=== PATIENT | female | born 1970 | race Caucasian/White ===

== ENCOUNTER 2024-03-02 06:43 | Outpatient (OUT) | payer OTHER, SELFPAY ==
--- NOTE | 2024-03-02 | US_ITS ---
The [address] [address] Patient Name: NARINDER JO MRN: [id number] date: 1970 Sex: F Assigned Patient Location: Current Patient Location: Accession/Order Number: [id number] Exam Date: 03/02/2024 07:02 Report Date: 03/03/2024 04:25 At the request of: AVTAR GAN Procedure: US pelvis w/ transvaginal EXAMINATION: US pelvis w/ transvaginal HISTORY: Left lower quadrant abdomen pain R10.32 COMPARISON: No relevant comparison available. TECHNIQUE: Transabdominal and/or transvaginal sonographic examination was performed as indicated by examination type. FINDINGS: UTERUS: Hysterectomy. RIGHT OVARY: Oophorectomy. LEFT OVARY: Normal size and appearance. Duplex Doppler demonstrates normal waveform and flow; resistive index 0.5. Ovary size: 2.3 x 1.4 x 1.6 cm CUL-DE-SAC: Unremarkable. No significant free fluid. BLADDER: Unremarkable. OTHER: None. US/US pelvis w/ transvaginal IMPRESSION: 1. Prior hysterectomy and right oophorectomy. 2. Unremarkable left ovary. No suspicious pelvic findings. Electronically authenticated by: DB ROD Date: 03/03/2024 04:25
== END 2024-03-02 06:44 | disposition home or self-care (01) ==
LOC: US 06:46
PROVIDERS: PCP Internal Medicine; Visit Provider Nurse Practitioner Family
DX: R10.32 Left lower quadrant pain (principal); Z87.42 Personal history of other diseases of the female genital tract
CPT/HCPCS: 76830; 76856

== ENCOUNTER 2024-03-04 08:09 | Emergency (ER) | payer OTHER, SELFPAY ==
[2024-03-04 08:15] VITALS: BP 150/82; PULSE 94; TEMP 36.7; O2SAT 100; BMI 29.6
--- OUTSIDE RECORDS SUMMARY | 2024-03-04 08:15 | XMS_ITS | CCD ---
Author Organization [facility] Care Team Providers Care Podiatrist Orthopedic Name Role Phone Montana Albrecht Unavailable Unavailable [...] Jenna Arcos Primary Care Mely Albrecht, Dr. Boyel Attending Unavailable Junitoertgiselle, Dr. Boyle Attending Unavailable Laneestdina, Dr. Jenna Arcos Primary Care Mely Albrecht, Dr. Boyle Referring Unavailable Sobia Law Unavailable [phone] Jenna Rodriguez MD Primary Care Provider MONTANA ALBRECHT Attending Unavailable JENNA RODRIGUEZ Primary Care UnavailMONTANA Severino Attending Unavailable JENNA RODRIGUEZ Primary Care Unavailkaylie e JENNIFER, JENNA ARCOS Primary Care UnavailMONTANA Severino Referring Unavailable Allergies Allergy Classification Reported Allergen(s) Allergy Type Date of Onset Reaction(s) Facility Amoxicillin / Clavulanate (1 source) Amoxicillin / Clavulanate Drug Allergy 3 [facility] Shellfish (1 source) Shellfish Food Allergy 4 [facility] shrimp allergenic extract (1 source) shrimp allergenic extract Drug Allergy 3 [facility] Work Phone: (10 sources) shrimp, unspecified; Translations: [SHRIMP] Allergy to substance (finding) 3 Anaphylaxis [facility] 3 Repository (7 sources) Other Allergy to substance (finding) [facility] Work Phone: (6 sources) Amoxicillin / Clavulanate; Translations: [Augmentin SUSR] Drug Allergy 3 Unknown [facility] (1 source) Amoxicillin / Clavulanate Drug Allergy [facility] Repository (1 source) Shrimp product Drug allergy (disorder) [facility] Repository (1 source) Shrimp product Propensity to adverse reactions Unknown [facility] Other (3 sources) Shellfish; Translations: [SHELLFISH DERIVED] Propensity to adverse reactions 4 [facility] (1 source) shrimp allergenic extract Drug Allergy 3 [facility] Work Phone: (2 sources) AMOXICILLIN-POT CLAVULANATE; Translations: [AMOXICILLIN-PO T CLAVULANATE] Propensity to adverse reactions to drug (disorder) 3 [facility] 3 Repository (1 source) Amoxicillin Drug Allergy [address] [facility] (1 source) Clavulanate Drug Allergy [address] [facility] Medications Current Medications Medication Drug Class(es) [...] COMPARISON: MRI 02/25/2021 and 02/24/2022 ACCESSION NUMBER(S): [id number] ORDERING CLINICIAN: MONTANA ALBRECHT TECHNIQUE: Axial and [...] as stated. This study was interpreted at [place], [place]. MACRO: None Signed by: Marbin Rao 03/02/2023 2:51 PM Dictation workstation: [id number] Normal [facility] Comment on above: Order Comment: Jeremias Juarez [...] 25 MG TABS Vitals Vital Signs Recorded: [id number] 09:24AM Height5 ft 7 in Ckvjjy821 lb BMI Nciuuwulgz14.7 kg/m2 BSA Calculated2 Tobacco Useb) No Falls [...] Aug 25 2022 9:37AM EST (Author) Normal [employer] Tobacco Screening.on 023 Fall risk assessment a) No falls within the last year [facility] Work Phone: Tobacco use status [facility] b) No [facility] Work Phone: Established Visit (Otolaryng ology)on 02-24-2022 [...] Recorded: 24Feb2022 11:13AM Height5 ft 7 in Ijsavl693 lb BMI Oefxssdbwn32.45 kg/m2 BSA Calculated1.97 Tobacco Useb) No PHQ-2 [...] 022 Adult depression screening assessment No [facility] Work Phone: Fall risk assessment a) No falls within the last year [facility] Work Phone: Tobacco use status [facility] b) No [facility] Work Phone: BUNon 02-18-2022 Urea nitrogen [Mass/Vol] 11.0 mg/dL Normal 7.0-18.0 [facility] Comment on above: Performed By: #### B , CREA #### [facility] [address] [place] [address] Dr. Kayli Banda CREATININEon 02-18-2022 Creatinine [Mass/Vol] 0.82 mg/dL Normal 0.55-1.02 [facility] Comment on above: Performed By: #### B UN, CREA #### [facility] [address] [place] [address] Dr. Kayli Banda EGFR-AF MALIAN >60 Normal >=60 [facility] Comment on above: Performed By: #### B UN, CREA #### [facility] [address] [place] [address] Dr. Kayli Banda EGFR-NON AF MALIAN >60 Normal >=60 [facility] Comment on above: Performed By: #### B , CREA #### [facility] [address] [place] [address] Dr. Kayli Banda Established Visit (Otolaryng ology)on [...] February. Reflux laryngitis which she manages with vpaq-trt-qytqljz omeprazole. I will see her in 6 months. 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 Surgical removal had been discussed with the patient. She understands that this will have to be the solution. We will continue to follow this clinically. A repeat MRI will be obtained in February. Reflux laryngitis which she manages with kzkt-inw-pxxjxpv omeprazole. I will see her in 6 [...] by mouth daily Vitals Vital Signs Recorded: [id number] 09:22AM Wxivpocspcg21.3 F Height5 ft 7 in Vrejdq168 lb BMI Rqkpvbiajb09.17 kg/m2 BSA Calculated2.02 Tobacco Useb) No Fall [...] Sep 09 2021 9:30AM EST (Author) Normal [employer] Tobacco Screening.on Fall risk assessment c) Not medically indicated [facility] ol[facility]ol [facility] Work Phone: Tobacco use status [facility] b) No [facility] Work Phone: Tobacco Screening.on Fall risk assessment c) Not medically indicated [facility] Work Phone: Tobacco use status CP b) No [facility] Work Phone: MRI Neck w/wo Contraston MR Neck WO and W contrast IV Interpreted by: PARISH SOSA01/30/20 13:14MRN: [id number] Name: RADHA JO STUDY:MRI NECK WO/W; 01/30/2020 [...] by: PARISH SOSA 01/30/20 13:14 [facility] Phone: Vital Signs Date Time Vital Sign Value Performing Clinician Facility 02-28-2024 10:31-0500 Body height 172.72 cm [facility] 02-28-2024 10:31-0500 Body mass index (BMI) [Ratio] 30.5 kg/m2 [facility] 02-28-2024 10:31-0500 Body temperature 98.7 [degF] [facility] 02-28-2024 10:31-0500 Body weight 91.17 kg [facility] 02-28-2024 10:31-0500 Diastolic blood pressure 76 mm[Hg] [facility] 02-28-2024 10:31-0500 Heart rate 108 /min [facility] 02-28-2024 10:31-0500 SaO2% (BldA) [Mass fraction] 95 % [facility] 02-28-2024 10:31-0500 Systolic blood pressure 124 mm[Hg] [facility] 09-14-2023 08:13-0400 Body height 170.2 cm Montana Albrecht MD Work Phone: [facility] 09-14-2023 08:13-0400 Body mass index (BMI) [Ratio] 30.54 kg/m2 Montana Albrecht MD Work Phone: [facility] 09-14-2023 08:13-0400 Body weight 88.45 kg Montana Albrecht MD Work Phone: [facility] 03-02-2023 10:29-0500 Body height 170.2 cm Montana Albrecht MD Work Phone: [facility] 03-02-2023 10:29-0500 Body mass index (BMI) [Ratio] 30.7 kg/m2 Montana Albrecht MD Work Phone: [facility] 03-02-2023 10:29-0500 Body weight 88.91 kg Montana Albrecht MD Work Phone: [facility] 02-01-2023 15:30-0400 Body height 170.18 cm Sobia Law Other [facility] Other 02-01-2023 15:30-0400 Body mass index (BMI) [Ratio] 31.32 kg/m2 Sobia Law Other [facility] Other 02-01-2023 15:30-0400 Body weight 90.72 kg Sobia Law Other [facility] Other 02-01-2023 15:30-0400 Diastolic blood pressure 82 mm[Hg] Sobia Smithcheryl Other [facility] Other 02-01-2023 15:30-0400 SaO2% (BldA) [Mass fraction] 98 % Sobia Zavalachago Other [facility] Other 02-01-2023 15:30-0400 Systolic blood pressure 122 mm[Hg] Sobia Smithcheryl Other [facility] Other 08-25-2022 09:24-0400 Body height 170.18 cm Jenna Rodriguez Work Phone: JB-Xpiajkthjmvxfk-Pfr [facility] Work Phone: 08-25-2022 09:24-0400 Body mass index (BMI) [Ratio] 30.7 kg/m2 Jenna Rodriguez Work Phone: VW-Zisbldkcwayxjw-Vkl [facility] Work Phone: 08-25-2022 09:24-0400 Body surface area Derived from formula 2 m2 Jenna Rodriguez Work Phone: DW-Dxobesmdjqtiyc-Rqs [place] Work Phone: 08-25-2022 09:24-0400 Body weight 88.91 kg Jenna Rodriguez Work Phone: CG-Sdfdotmxliwmdm-Fdd [place] Work Phone: 02-24-2022 11:13-0500 Body height 170.18 cm Jenna Rodriguez Work Phone: QD-Ahewjttncbdmvk-Nyy [facility] Work Phone: 02-24-2022 11:13-0500 Body mass index (BMI) [Ratio] 29.45 kg/m2 Jenna Rodriguez Work Phone: DN-Erzzhchdrhwwlw-Jdd [place] Work Phone: 02-24-2022 11:13-0500 Body surface area Derived from formula 1.97 m2 Jenna Rodriguez Work Phone: UW-Xixamatpmbxzrm-Pxm [place] Work Phone: 02-24-2022 11:13-0500 Body weight 85.28 kg Jenna Rodriguez Work Phone: MR-Akbzxzcdlkpalc-Rpr [place] Work Phone: 09-09-2021 09:22-0400 Body height 170.18 cm Jenna Rodriguez Work Phone: GQ-Umpamimserfxmz-Czd [facility] Work Phone: 09-09-2021 09:22-0400 Body mass index (BMI) [Ratio] 31.17 kg/m2 Jenna Rodriguez Work Phone: TK-Nrgwiougfrsaqi-Hrn [place] Work Phone: 09-09-2021 09:22-0400 Body surface area Derived from formula 2.02 m2 Jenna Rodriguez Work Phone: XN-Lsonoxucnqiclh-Dtb [facility] Work Phone: 09-09-2021 09:22-0400 Body temperature 97.3 [degF] Jenna Rodriguez Work Phone: CZ-Ycydowobsekcfd-Gxb [facility] Work Phone: 09-09-2021 09:22-0400 Body weight 90.27 kg Jenna Rodriguez Work Phone: XS-Voafbtcgvfhwsd-Mej [place] Work Phone: 02-25-2021 11:16-0500 Body height 170.18 cm Montana Albrecht MD Work Phone: FU-Tlwiepbpcwtqyf-Kxl [facility] Work Phone: 02-25-2021 11:16-0500 Body mass index (BMI) [Ratio] 30.7 kg/m2 Montana Albrecht MD Work Phone: BD-Cayfsmjjdymfho-Tnn [facility] Work Phone: 02-25-2021 11:16-0500 Body surface area Derived from formula 2 m2 Montana Albrecht MD Work Phone: OY-Dlbwqoajldkqdy-Yox [facility] Work Phone: 02-25-2021 11:16-0500 Body temperature 97 [degF] Montana Albrecht MD Work Phone: JM-Mxavjwmdugarvx-Mhl [facility] Work Phone: 02-25-2021 11:16-0500 Body weight 88.91 kg Montana Albrecht MD Work Phone: BW-Rijvsvsehokcse-Bnn [place] Work Phone: 01-30-2020 13:50-0400 BMI (Body Mass Index) 30.7 kg/m2 Montana Albrecht VT-Pzbgssvqduiqyq-Qp s [facility] Work Phone: 01-30-2020 13:50-0400 Body Temperature 98 [degF] Montana Albrecht MG-Otolaryngolo gy-Tony [facility] Work Phone: 01-30-2020 13:50-0400 Body weight 88.91 kg Montana Albrecht MG-Otolaryngolog y-Tony [place] Work Phone: 01-30-2020 13:50-0400 BSA (Body Surface Area) 2 m2 Montana Albrecht ET-Sofshvaedxvlnd-Vh s [place] Work Phone: 01-30-2020 13:50-0400 Height 170.18 cm Montana Albrecht MG-Otolaryngolog y-Tony [place] Work Phone: Encounters Encounter Date Encounter Type Care Provider Facility Start: 02-28-2024 Patient encounter status [facility] Start: 02-28-2024 End: 02-28-[address] [facility] Work Phone: Start: 02-28-2024 End: 02-28-2024 Patient encounter procedure [facility] Physician [facility] Work Phone: Start: 09-14-2023 End: 09-14-2023 ambulatory [facility] Start: 09-14-2023 End: 09-14-2023 Office outpatient visit 15 minutes Montana Albrecht MD Work Phone: [facility] Comment on above: Parapharyngeal space mass (Primary Dx) Start: 03-02-2023 End: 03-02-2023 ambulatory [facility] Start: 03-02-2023 End: 03-02-2023 Office outpatient visit 15 minutes Montana Albrehct MD Work Phone: [facility] Comment on above: Parapharyngeal space mass (Primary Dx) Start: 03-02-2023 End: 03-02-2023 ambulatory [facility] Start: 02-01-2023 End: 02-01-2023 ambulatory Sobia Law Other [facility] Other Start: 02-01-2023 Encounter for genera l adult medical examination without abnormal findings Sobia Law [facility] Start: 02-01-2023 Initial preventive medicine new patient 40-64yrs Sobia Law [facility] Start: 08-25-[address] Montana Mcqueen lity:[id number] Start: 08-25-2022 Office outpatient vi sit [facility] Work Phone: DK-Iakyomoiupvogv-Pjkh [place] Work Phone: Start: 02-24-[address] Montana Mcqueen lity:[phone] Start: 02-24-2022 Office outpatient vi sit 15 minutes Jenna Rodriguez Work Phone: BB-Nelmymzztlbysk-Vluf [place] Work Phone: Start: 02-24-[address] Montana Mcqueen lity:[id number] Start: 02-18-2022 End: 02-19-[address] DOCTOR WEBSTER Facility: Start: 09-09-2021 Office outpatient vi sit 15 minutes Jenna Rodriguez Work Phone: MR-Yflazmvrvogbto-Vrxu [place] Work Phone: Start: 09-09-[address] Montana Mcqueen lity:[phone] Start: 02-25-2021 Office outpatient vi sit 15 minutes Montana Albrecht MD Work Phone: GM-Okkktlhpzlkssr-Xnbo [place] Work Phone: Start: 01-30-2020 Patient encounter procedure Montana Albrecht FL-Tattfprpapbgcq-Xzli [place] Work Phone: Start: 06-27-2019 Patient encounter procedure Montana Junitosophie SK-Gaocwakdgztazg-Xwyp [place] Work Phone: Start: 12-27-2018 Patient encounter procedure Montana Albrecht YH-Kotmlrdtgulyvp-Fcwu [place] Work Phone: Start: 06-04-2018 Patient encounter procedure Montana Albrecht QA-Qbdffvjgwrbpjy-Mrlx [place] Work Phone: Procedures Date Procedure Procedure Detail Performing Clinician Start: 03-02-2023 MR NECK SOFT TISSUE ONLY W AND WO IV CONTRAST JENNA RODRIGUEZ Start: 03-10-2022 Mammography Montana barrios MD Work Phone: Hysterectomy Montaan Albrecht Tonsillectomy Montana Albrecht Plan of Treatment Date Care Activity Detail Author Start: 03-14-2024 End: 03-14-2024 Patient encounter procedure 03/14/2024 10:15 AM EST Office Visit [facility] [address] [facility] [address] [phone] [place] [address] [place] [address] [facility] Start: 12-19-2023 Influenza vaccination Influenz a Vaccine (Season Ended) [facility] Start: 09-14-2023 End: 09-14-2023 Patient encounter procedure 09/14/2023 8:30 AM EDT Office Visit [facility] [address] [place] [address] [phone] [place] [address] [place] [address] [facility] Start: 03-10-2023 Screening for malign ant neoplasm of breast Mammogram [facility] Start: 03-02-2023 FUV, Provider: Montana Albrecht, Status: Pen, Time: 10:15 AM FUV, Provider: Montana Albrecht, Status: Pen, Time: 10:15 AM QV-Gkardwivbkexzp-Temy sanchez Work Phone: Start: 12-18-2022 COVID-19 Vaccine ( season) COVID-19 Vaccine ( season) [facility] Start: 12-18-2022 Influenza vaccination Influenz a Vaccine (#1) [facility] Start: 08-25-2022 FUV, Provider: Montana Albrecht, Status: Pen, Time: 8:30 AM FUV, Provider: Montana Albrecht, Status: Pen, Time: 8:30 AM XQ-Alhufcooxmmtab-Lius sanchez Work Phone: Start: 02-24-2022 FUV, Provider: Montana Albrecht, Status: Pen, Time: 10:15 AM FUV, Provider: Montana Albrecht, Status: Pen, Time: 10:15 AM EW-Adjvdrhxtpnoro-[place] Work Phone: Start: 02-20-2022 COVID-19 Vaccine (4 - Pfizer series) COVID-19 Vaccine (4 - Pfizer series) [facility] Start: 09-09-2021 FUV, Provider: Montana Albrecht, Status: Pen, Time: 9:20 AM FUV, Provider: Montana Albrecht, Status: Pen, Time: 9:20 AM PF-Oggtelsuwltebl-Fzbg [place] Work Phone: Start: 08-02-2019 Zoster Vaccines (1 of 2) Zoste r Vaccines (1 of 2) [facility] Start: 08-02-1991 DTaP/Tdap/Td Vaccine s (1 - Tdap) DTaP/Tdap/Td Vaccines (1 - Tdap) [facility] Start: 1990 Screening for malign ant neoplasm of cervix [facility] Start: 1988 Hepatitis B Vaccines (1 of 3 - 19+ 3-dose series) Hepatitis B Vaccines (1 of 3 - 19+ 3-dose series) [facility] Start: 08-02-1987 Hepatitis C screening Hepatitis C Sc reening [facility] Start: 1970 MMR Vaccines (1 of 1 - Standard series) MMR Vaccines (1 of 1 - Standard series) [facility] Start: 1969 Hepatitis B Vaccines (1 of 3 - 3-dose series) Hepatitis B Vaccines (1 of 3 - 3-dose series) [facility] Start: 1969 HIV screening HIV Screening [facility] Start: 1969 Lipid panel Lipid Panel [facility] Start: 1969 Screening for malign ant neoplasm of colon [facility] Start: 1969 Yearly Adult Physical Yearly Adult P hysical [facility] Comprehensive metabo lic 2000 panel - Serum or Plasma [facility] MG Breast - bilatera l Screening [facility] US Pel[facility] Pelvis transvaginal [facility] Immunizations Immunization Date Immunization Notes Care Provider Fa cility 03-11-2022 influenza virus vaccine, unspecified formulation Montana Albrecht MD Work Phone: [facility] Work Phone: Payers Date Payer Category Payer Private Health Insurance [employer] [id number] 1997-Present [address] [place] [address] [id number] 1969 Unknown [id number] 1969 Unknown [id number] [id number] 1969 Unknown [id number] [id number] 1969 Unknown [id number] [id number] 1969 Unknown [id number] [id number] 1969 Unknown [id number] 1969 Unknown [id number] 1969 Unknown [id number] 1959 Private Health Insurance [id number] Private Health Insurance [id number] Unknown [employer] Social History Date Type Detail Facility Start: 03-02-2023 Never a smoker Never a smoker [facility] Work Phone: Start: 03-02-2023 Sex Assigned At [facility] Other Start: 03-02-2023 End: 02-28-2024 Tobacco smoking status NYIS Never smoked tobacco [facility] Work Phone: Start: 03-02-2023 Tobacco use and exposure Smokeless tobacco non-user [facility] Work Phone: Start: 03-02-2023 End: 09-14-2023 Alcohol intake Current drinker of alcohol (finding) [facility] Work Phone: Start: 1970 Sex Assigned At Not on file [facility] Work Phone: Start: 02-20-2023 End: 09-14-2023 Exposure to SARS-CoV-2 (event) Not sure [facility] Start: 02-28-2024 Sex Female (finding) [facility] Start: 1970 Sex Assigned At Female [facility] NEGATED: Highlighted row - - FR-Fdkllvynojahep-On stl belkis Work Phone: Functional Status Date Assessment Result Facility NEGATED: Highlighted row Functional performance Functional status health issues are not documented Disease GR-Bepuioxuygishj-Y [employer] Work Phone: Mental Status Date Assessment Result Facility NEGATED: Highlighted row Cognitive function [Interpretation] Cognitive status health issues are not documented Disease PK-Wacczixewfgrmh-Y [employer] Work Phone: History of Present illness Narrative [...] are normally mobile. documented in this encounter [facility] Work Phone: Evaluation note 02-01-2023 Note Date [...] Screening for lipid disorders (ICD-10 - Z13.220) [facility] Other History of Present illness Narrative 02-17-2022 [...] really does not describe any significant symptoms. [facility] Work Phone: History of Present illness Narrative [...] really does not describe any significant symptoms. VW-Qdrjccatchgedv-Kuhewhsr Work Phone: History of Present illness Narrative [...] mg. She did well with the medication. [facility] Work Phone: History of Present illness Narrative [...] seems to be fairly similar in size. GT-Ynwriwnoqjazfv-Rwgfmqct Work Phone: Evaluation note Note Date & Type Note Facility Evaluation note Diagnosis Parapharyngeal space mass- Primary documented in this encounter [facility] Work Phone: Evaluation note Note Date & Type Note Facility Evaluation note Diagnosis Onset Date Resolution History of ovarian cyst acute February 27, 024 10:24am Left lower quadrant abdominal pain acute February 27 024 10:24am [facility] Work Phone: History general Narrative - Reported Note Date & Type Note Facility History general Narrative - Reported Type Medical History 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 documented in this encounter [facility] Work Phone: Family History Mother Name Dates [...] and content) DATE CREATED AUTHOR 02/23/[address] [facility] DATE CREATED AUTHOR AUTHOR'S ORGANIZ ATION 08/26/2022 [facility] DATE CREATED AUTHOR AUTHOR'S ORGANIZ ATION 08/26/2022 [employer] DATE CREATED AUTHOR AUTHOR'S ORGANIZ ATION 09/14/2023 [facility] DATE CREATED AUTHOR AUTHOR'S ORGANIZ ATION 11/05/2023 [facility] REASON FOR VISIT (unrecogniz ed section and content) Reason Comments Follow-up Care Teams (unrecognized sec tion and content) Podiatrist Orthopedic Relationship Specialty Start Date End Date Jenna Rodriguez MD [address] [place] [address], [address] [place] [address] PCP - General 11/03/13 Team Status: Active Member Role Status Dates Jenna Rodriguez MD Primary Care Provider Active Team Status: Inactive Member Role Status Dates Jenna Rodriguez MD Primary Care Provider Active Start: February 28, 2024 End: February 28, [address] MAKER-C Attending Provider Active Start: February End: February [...] BE BASED ON THE PRIMARY CLINICAL RECORDS. [facility] [employer] provides no warranty or guarantee of the accuracy or completeness of information in this document.
--- NOTE | 2024-03-04 08:37 | ED.SKABFB1 ---
HPI - Skin/Abscess/Foreign Bdy General Chief complaint: Skin/Abscess/Foreign Body Stated complaint: SKIN OTHER Time Seen by Provider: 03/04/24 08:19 Source: patient Mode of arrival: walk-in Limitations: no limitations History of Present Illness HPI narrative: The patient is coming to the ER with a concern of discoloring and skin irritation after applying nail georgian and is following almost the last few weeks, the patient is concerned about fungal infection He is complaining of some dryness in the area she denies any other complaint Related Data Previous Rx's ?Medication ?Instructions ?Recorded ciclopirox 8 % topical solution 1 applic topical DAILY 4 weeks 03/04/24 #6.6 mL Allergies Allergy/AdvReac Type Severity Reaction Status Date / Time amoxicillin Allergy Unknown Verified 03/04/24 08:14 clavulanic acid (From Allergy Vomiting Verified 03/04/24 08:14 Augmentin) Review of Systems ROS Status of ROS 10 or more systems reviewed and unremarkable except as noted in history and below PFSH PFSH Social History Little interest or pleasure in doing things: not at all Feeling down, depressed, or hopeless: not at all Exam Narrative Exam Narrative: Nurses notes and vital signs reviewed and patient is not hypoxic. Skin examination: The patient have a dryness and possible fungal infection just beside the nail in both thumbs and below the nails well there is dryness of the skin beside the nail there is no infection of the nailbed General: Well-appearing and in no apparent distress. Head: Normocephalic, atraumatic. Neck: Supple, non-tender. Eye: Pupils are equal, round and EOMI. No scleral icterus. Ears, Nose, Mouth, and Throat: TM are clear, no nasal mucosal hypertrophy. Oral mucosa is moist, no posterior oropharynx erythema, uvula is mid-line Cardiovascular: Regular Rate and Rhythm without murmur, gallop or rub. Respiratory: No accessory muscle use or respiratory distress. Lungs are clear to auscultation, no wheezing, rales or rhonchi Chest Wall: no tenderness Back: No midline thoracic or lumbar vertebral tenderness. No CVA tenderness Musculoskeletal: normal ROM, no calf or popliteal tenderness, no lower extremity edema/swelling GI: Abdomen is soft, non-distended. Normal bowel sounds. No masses appreciated. No tenderness to palpation. No rebound, guarding, or rigidity noted. Neurological: A&O x4. No cranial nerve dysfunction observed. No truncal ataxia. Moves all extremities. Sensation intact. Psychiatric: Cooperative and interactive. Normal mood and affect. Constitutional Vital Signs, click to edit/add: Last Vital Signs Temp 98.0 F 03/04/24 08:15 Pulse 94 H 03/04/24 08:15 Resp 20 03/04/24 08:15 BP 150/82 H 03/04/24 08:15 Pulse Ox 100 03/04/24 08:15 O2 Del Method Room Air 03/04/24 08:15 Course Vital Signs Vital signs: Vital Signs Temperature 98.0 F 03/04/24 08:15 Pulse Rate 94 H 03/04/24 08:15 Respiratory Rate 20 03/04/24 08:15 Blood Pressure 150/82 H 03/04/24 08:15 Pulse Oximetry 100 03/04/24 08:15 Oxygen Delivery Method Room Air 03/04/24 08:15 Temperature 98.0 F 03/04/24 08:15 Pulse Rate 94 H 03/04/24 08:15 Respiratory Rate 20 03/04/24 08:15 Blood Pressure 150/82 H 03/04/24 08:15 Pulse Oximetry 100 03/04/24 08:15 Oxygen Delivery Method Room Air 03/04/24 08:15 MDM - Skin/Abscess/Foreign Bdy MDM Narrative Medical decision making narrative: The patient presented to us with a possible yeast infection of the nail mostly onychomycosis, patient was started on local treatment she was instructed about continuing the treatment and removing the nail georgian first before applying the treatment Also daily trimming and follow-up with her primary care as outpatient The patient is to follow up with primary care physician in next 2-3 days or to return to the emergency department should any of the signs or symptoms worsen or new symptoms develop. The patient agrees with the following Diagnosis and Treatment plan and the patient will be discharged home. Discharge Plan Discharge Chief Complaint: Skin/Abscess/Foreign Body Clinical Impression: Onychomycosis Patient Disposition: Home, Self-Care Time of Disposition Decision: 08:30 Condition: Good Prescriptions / Home Meds: New ciclopirox 8 % solution 1 applic topical DAILY 28 Days Qty: 6.6 0RF Print Language: Stateless Instructions: Skin Yeast Infection (ED) Referrals: AVTAR GAN [Primary Care Provider] - 1 week
--- NOTE | 2024-03-04 08:43 | PC.NURSE ---
Patient has gel nails in place, has some redness around thumb nails, skin is dry and cracked, no drainage.
== END 2024-03-04 08:45 | disposition home or self-care (01) ==
PROVIDERS: Emergency Provider Emergency Medicine; PCP Nurse Practitioner Family
DX: B35.1 Tinea unguium (principal); Z00.00 Encounter for general adult medical examination without abnormal findings
CPT/HCPCS: 99283

== ENCOUNTER 2024-03-04 08:45 | Outpatient (OUT) | payer OTHER, SELFPAY ==
--- OUTSIDE RECORDS SUMMARY | 2024-03-04 08:07 | XMS_ITS | CCD ---
Author Organization [facility] Care Team Providers Care Tool Supervisor Name Role Phone Montana Albrecht Unavailable Unavailable Montana Albrecht Unavailable Unavailable Unavailable Unavailable Unavailable Unavailable Unavailable Jenna Rodriguez Unavailable MIS, DR FITCH Admitting Unavailable MISC, DR FITCH Attending Unavailable MISC, DR FITCH Consulting Unavailable Dahlia, Dr. Boyle Referring Unavailable Jennifer, Dr. Jenna Arcos Primary Care Mely Albrecht, Dr. Boyle Attending Unavailable Dahlia, Dr. Boyle Referring Unavailable Laneestdina, Dr. Jenna Arcos Primary Care Mely Albrecht, Dr. Boyle Attending Unavailable Dahlia, Dr. Boyle Referring Unavailable Jennifer, Dr. Jenna Arcos Primary Care Mely Albrecht, Dr. Boyle Attending Unavailable Junitoertgiselle, Dr. Boyle Attending Unavailable Laneestdina, Dr. Jenna Arcos Primary Care Mely Albrecht, Dr. Boyle Referring Unavailable Sobia Law Unavailable [phone] Jenna Rodriguez MD Primary Care Provider MONTANA ALBRECHT Attending Unavailable JENNA RODRIGUEZ Primary Care UnavailMONTANA Severino Attending Unavailable JENNA RODRIGUEZ Primary Care Unavailkaylie e JENNIFER, JENNA ARCOS Primary Care UnavailMONTANA Severino Referring Unavailable Allergies Allergy Classification Reported Allergen(s) Allergy Type Date of Onset Reaction(s) Facility Amoxicillin / Clavulanate (1 source) Amoxicillin / Clavulanate Drug Allergy 3 [facility] Shellfish (1 source) Shellfish Food Allergy 4 [facility] shrimp allergenic extract (1 source) shrimp allergenic extract Drug Allergy 3 [facility] Work Phone: (10 sources) shrimp, unspecified; Translations: [SHRIMP] Allergy to substance (finding) 3 Anaphylaxis [facility] 3 Repository (7 sources) Other Allergy to substance (finding) [facility] Work Phone: (6 sources) Amoxicillin / Clavulanate; Translations: [Augmentin SUSR] Drug Allergy 3 Unknown [facility] (1 source) Amoxicillin / Clavulanate Drug Allergy [facility] Repository (1 source) Shrimp product Drug allergy (disorder) [facility] Repository (1 source) Shrimp product Propensity to adverse reactions Unknown [place] Other (3 sources) Shellfish; Translations: [SHELLFISH DERIVED] Propensity to adverse reactions 4 [facility] (1 source) shrimp allergenic extract Drug Allergy 3 [facility] Work Phone: (2 sources) AMOXICILLIN-POT CLAVULANATE; Translations: [AMOXICILLIN-PO T CLAVULANATE] Propensity to adverse reactions to drug (disorder) 3 [facility] 3 Repository (1 source) Amoxicillin Drug Allergy 4 [facility] (1 source) Clavulanate Drug Allergy 4 [facility] Medications Current Medications Medication Drug Class(es) Dates Sig (Normalized) Sig (Original) Multi Complete - (1 source) take 1 tablet by mouth once daily Multi Complete - 1 tablet orally daily Active multivitamin tablet (2 sources) Start: 08-14-2003 multivitamin tablet Take one(1) tablet daily. 08/14/2003 Active Start: 08-14-2003 multivitamin t ablet Take one(1) tablet daily. 0 08/14/2003 Active Completed/Discontinued Medications Medication Drug Class(es) Dates Sig (Normalized) Sig (Original) diphenhydrAMINE hydrochloride 25 mg oral tablet (7 sources) Histamine-1 Receptor Antagonist Benadryl 25 MG TABS Quantity: 0 Refills: 0 Ordered: 30-Jan-2014 DO Active Benadryl 25 MG T ABS Refills: 0 DO Active fluocinonide 0.5 mg/ml topical cream (1 source) Corticosteroid Start: 05-31-2020 Fluocinonide 0.05 % External Cream Quantity: 60 Refills: 0 Ordered: 31-May-2020 DO Start : 31-May-2020 Complete omeprazole 40 mg delayed release oral capsule (5 sources) Proton Pump Inhibitor Start: 01-30-2020 take 1 capsule by mouth once daily Omeprazole 40 MG Oral Capsule Delayed Release One (1) capsule by mouth daily Quantity: 90 Refills: 1 Ordered: 30-Jan-2020 Montana Albrecht MD Start : 30-Jan-2020 Active predniSONE 20 mg oral tablet (1 source) Start: 12-31-2020 predniSONE 20 MG Oral Tablet TAKE THREE TABLETS BY MOUTH FOR 2 DAYS, THEN 2 TABS DAILY FOR 2 DAYS, THEN 1 TAB DAILY FOR 2 DAYS Quantity: 12 Refills: 0 Ordered: 31-Dec-2020 DO Start : 31-Dec-2020 Complete Problems Active Problems Problem Classification Problem Date Documented Da te Episodic/Chronic Abdominal pain (2 sources) Left lower quadrant pain; Translations: [Left lower quadrant pain] 02-28-2024 Episodic Other and unspecified benign neoplasm (1 source) 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 system, unspecified Episodic Other ear and sense organ disorders (4 sources) Asymmetrical sensorineural hearing loss; Translations: [Sensorineural hearing loss, asymmetrical] Chronic Other ear and sense organ disorders (3 sources) Asymmetrical sensorineural hearing loss; Translations: [Asymmetrical sensorineural hearing loss] Episodic Other ear and sense organ disorders (7 sources) Tinnitus; Translations: [Tinnitus, unspecified] Episodic Other female genital disorders (1 source) History of gynecological disorder; Translations: [Personal history of other diseases of the female genital tract] 02-28-2024 Episodic Other female genital disorders (1 source) Personal history of other diseases of the female genital tract; Translations: [Personal history of other genital system and obstetric disorders] 02-28-2024 Episodic Other lower respiratory disease (7 sources) H/O: bronchitis; Translations: [Personal history of other diseases of respiratory system] Episodic Other screening for suspected conditions (not mental disorders or infectious disease) (5 sources) Encounter for screening mammogram for malignant neoplasm of breast; Translations: [Encounter for screening for malignant neoplasm of colon] Episodic Other skin disorders (1 source) Disorder of the skin and subcutaneous tissue, unspecified Episodic Other upper respiratory infections (7 sources) Laryngitis due to gastroesophageal reflux; Translations: [Acute laryngitis without mention of obstruction] Episodic Residual codes; unclassified (4 sources) History of clinical finding in subject; Translations: [Personal history of other specified diseases] Episodic Past or Other Problems Problem Classification Problem Date Documented Date Episodic/Chronic Lymphadenitis (1 source) Localized enlarged lymph nodes; Translations: [Localized enlarged lymph nodes] Onset: 02-24-2022 Episodic Other skin disorders (20 sources) Localized swelling, mass and lump, neck; Translations: [Mass of parapharyngeal space] Onset: 02-18-2022 Episodic Unclassified (3 sources) History of clinical finding in subject; Translations: [History of shortness of breath] NEGATED: Highlighted row has not occurred!Residual codes; unclassified (12 sources) Disease Episodic Results Test Name Value Interpretation Reference Range Facility MR NECK SOFT TISSUE ONLY W A ND WO IV CONTRASTon 03-02-2023 MR NECK SOFT TISSUE ONLY W AND WO IV CONTRAST Interpreted By: Marbin Rao, and Lyssa Oscar STUDY: MR NECK SOFT TISSUE ONLY W AND WO IV CONTRAST; 03/02/2023 10:18 am INDICATION: Signs/Symptoms: f/u parapharyngeal space mass R22.1: Mass of parapharyngeal space. Procrit: Nodes: Patient has a probable schwannoma of the right carotid sheath and parapharyngeal space. Currently under observation. COMPARISON: MRI 02/25/2021 and 02/24/2022 ACCESSION NUMBER(S): [id number] ORDERING CLINICIAN: MONTANA ALBRECHT TECHNIQUE: Axial and sagittal T1 weighted and axial T2 weighted, diffusion weighted, and STIR images of the neck were acquired. After administration of 18 cc Dotarem gadolinium based intravenous contrast agent, axial and coronal fat saturated T1 weighted images were acquired through the neck. FINDINGS: Oral Cavity, Pharynx and Larynx: The oral cavity, nasopharynx, oropharynx, hypopharynx and laryngeal structures appear unremarkable. Parotid and Submandibular Glands: There is again evidence of a 4.5 x 3.1 x 7.7 cm heterogeneously enhancing predominantly T2 hyperintense mass within the right carotid space slightly increased in size from 4.2 x 2.9 X 7.5 cm on 02/24/2022. There is again evidence of anteromedial displacement of the right internal and external carotid arteries, as well as the common carotid artery. There is also evidence mild anterior displacement of the right submandibular gland and lateral displacement of the right sternocleidomastoid muscle. There is also anteromedial displacement of the right parapharyngeal fat. Thyroid Gland: The thyroid gland appears unremarkable. Major Neck Vessels: Bilateral major neck vessels demonstrate expected flow voids. Lymph nodes: There is no evidence of significant cervical adenopathy. Paranasal Sinuses and Mastoids: Visualized paranasal sinuses are clear. Bilateral mastoid air cells are clear. Visualized intracranial and intraorbital structures are unremarkable. 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 I personally reviewed the images/study and I agree with the findings as stated. This study was interpreted at [place], [place]. MACRO: None Signed by: Marbin Rao 03/02/2023 2:51 PM Dictation workstation: [id number] Normal [facility] Comment on above: Order Comment: Jeremias Juarez elected: Y Established Visit (Otolaryng ology)on 08-25-2022 Established Visit (Otolaryngology) Diagnoses/Problems Mass of parapharyngeal space (784.2) (R22.1) Patient Discussion/Summary 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 Surgical removal had been discussed with the patient. She understands that this will have to be the solution. At the same time she is worried about the possible sequelae of the surgery which some of the cranial nerves. We will continue to follow this clinically. A repeat MRI will be obtained in 6 months. I will see her in 6 months. 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 Surgical removal had been discussed with the patient. She understands that this will have to be the solution. At the same time she is worried about the possible sequelae of the surgery which some of the cranial nerves. We will continue to follow this clinically. A repeat MRI will be obtained in 6 months. I will see her in 6 months. Chief Complaint Follow-up regarding a parapharyngeal space mass. History of Present IllnessI saw this lady for a right carotid sheet mass. Her films have been reviewed with our radiologist and the mass is consistent with a probable schwannoma. Given the location it either arises from the sympathetic chain or from the 10th cranial nerve. The patient has elected to have this followed clinically as opposed to surgical excision. She had a repeat scan in February 2022. I personally reviewed the scan with the patient. It seems to be fairly similar in size. The patient really does not describe any significant symptoms. Active Problems Asymmetrical sensorineural hearing loss (389.16) (H90.3) Mass of parapharyngeal space (784.2) (R22.1) Reflux laryngitis (464.00,530.81) (J04.0,K21.9) Tinnitus (388.30) (H93.19) Past Medical History History of bronchitis (V12.69) (Z87.09) History of shortness of breath (V13.89) (Z87.898) Surgical History History of Hysterectomy History of Tonsillectomy Family History Family history of diabetes mellitus (V18.0) (Z83.3) Family history of glaucoma (V19.11) (Z83.511) Family history of hyperlipidemia (V18.19) (Z83.438) Social History Currently working Lives with spouse Never a smoker Social alcohol use Allergies Augmentin SUSR Recorded By: Kerry Gongora; 02/25/2021 11:17:22 AM Other Recorded By: Enedina Fall; 01/30/2014 4:55:13 PM SHRIMP Shrimp Recorded By: Kerry Gongora; 10/30/2014 11:30:52 AM Current Meds Medication NameInstruction Benadryl 25 MG TABS Vitals Vital Signs Recorded: [id number] 09:24AM Height5 ft 7 in Dfnshd044 lb BMI Lsmqjquguf53.7 kg/m2 BSA Calculated2 Tobacco Useb) No Falls Screening (Age 18+)a) No falls within the last year Physical Exam On examination the oral cavity and oropharynx shows a shift of the soft palate to the left. There is good tongue mobility. Palpation of the neck does show some asymmetry in the upper neck with the right side being more prominent. This seems to be stable. A fiberoptic laryngoscopy was carried out. Under topical Xylocaine and Bladimir-Synephrine the scope was introduced through the nostril. The nasopharynx, base of tongue, hypopharynx, and larynx are visualized. The vocal cords are normally mobile. 'Scores and Scales' Signatures Electronically signed by : Montana Albrecht MD; Aug 25 2022 9:37AM EST (Author) Normal [employer] Tobacco Screening.on 023 Fall risk assessment a) No falls within the last year [facility] Work Phone: Tobacco use status [facility] b) No [facility]-Otolaryngol [facility] Work Phone: Established Visit (Otolaryng ology)on 02-24-2022 Established Visit (Otolaryngology) Diagnoses/Problems Mass of parapharyngeal space (784.2) (R22.1) Patient Discussion/Summary 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 Surgical removal had been discussed with the patient. She understands that this will have to be the solution. We will continue to follow this clinically. I will see her in 6 months. 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 Surgical removal had been discussed with the patient. She understands that this will have to be the solution. We will continue to follow this clinically. I will see her in 6 months. Chief Complaint Follow-up regarding a parapharyngeal space mass. History of Present IllnessI saw this lady for a right carotid sheet mass. Her films have been reviewed with our radiologist and the mass is consistent with a probable schwannoma. Given the location it either arises from the sympathetic chain or from the 10th cranial nerve. The patient has elected to have this followed clinically as opposed to surgical excision. She had a repeat scan in February 2022. I personally reviewed the scan with the patient. It seems to be fairly similar in size. The patient really does not describe any significant symptoms. Active Problems Asymmetrical sensorineural hearing loss (389.16) (H90.3) Mass of parapharyngeal space (784.2) (R22.1) Reflux laryngitis (464.00,530.81) (J04.0,K21.9) Tinnitus (388.30) (H93.19) Past Medical History History of bronchitis (V12.69) (Z87.09) History of shortness of breath (V13.89) (Z87.898) Surgical History History of Hysterectomy History of Tonsillectomy Family History Family history of diabetes mellitus (V18.0) (Z83.3) Family history of glaucoma (V19.11) (Z83.511) Family history of hyperlipidemia (V18.19) (Z83.438) Social History Currently working Lives with spouse Never a smoker Social alcohol use Allergies Augmentin SUSR Recorded By: Kerry Gongora; 02/25/2021 11:17:22 AM Other Recorded By: Enedina Flal; 01/30/2014 4:55:13 PM SHRIMP Shrimp Recorded By: Kerry Gongora; 10/30/2014 11:30:52 AM Current Meds Medication NameInstruction Benadryl 25 MG TABS Vitals Vital Signs Recorded: 24Feb2022 11:13AM Height5 ft 7 in Voekyy422 lb BMI Vhslobasit41.45 kg/m2 BSA Calculated1.97 Tobacco Useb) No PHQ-2 #1. Over the last 2 weeks have you felt down, depressed or hopeless? (If yes, answer PHQ-9 below)No Falls Screening (Age 18+)a) No falls within the last year Physical Exam On examination the oral cavity and oropharynx shows a shift of the soft palate to the left. There is good tongue mobility. Palpation of the neck does show some asymmetry in the upper neck with the right side being more prominent. This seems to be stable. A fiberoptic laryngoscopy was carried out. Under topical Xylocaine and Bladimir-Synephrine the scope was introduced through the nostril. The nasopharynx, base of tongue, hypopharynx, and larynx are visualized. The vocal cords are normally mobile. 'Scores and Scales' Signatures Electronically signed by : Montana Albrecht MD; Feb 24 2022 11:29AM EST (Author) Normal [employer] MRI Neck w/wo Contraston MR Neck WO and W contrast IV Normal [facility]tolaryngol [facility] Work Phone: Tobacco Screening.on 022 Adult depression screening assessment No [facility]tolaryngol [facility] Work Phone: Fall risk assessment a) No falls within the last year [facility]tol[facility]ol [facility] Work Phone: Tobacco use status [facility] b) No [facility]-Otolaryngol o[facility] Work Phone: BUNon 02-18-2022 Urea nitrogen [Mass/Vol] 11.0 mg/dL Normal 7.0-18.0 [facility] Comment on above: Performed By: #### B , CREA #### [facility] [address] [place] [address] Dr. Kayli Banda CREATININEon 02-18-2022 Creatinine [Mass/Vol] 0.82 mg/dL Normal 0.55-1.02 [facility] Comment on above: Performed By: #### B UN, CREA #### [facility] [address] [place] [address] Dr. Kayli Banda EGFR-AF [place] CITIZ[place] >60 Normal >=60 [facility] Comment on above: Performed By: #### B UN, CREA #### [facility] [address] [place] [address] Dr. Kayli Banda EGFR-NON AF [place] CITIZ[place] >60 Normal >=60 [facility] Comment on above: Performed By: #### B , CREA #### [facility] [address] [place] [address] Dr. Kayli Banda Established Visit (Otolaryng ology)on 09-09-2021 Established Visit (Otolaryngology) Diagnoses/Problems Mass of parapharyngeal space (784.2) (R22.1) Patient Discussion/Summary 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 Surgical removal had been discussed with the patient. She understands that this will have to be the solution. We will continue to follow this clinically. A repeat MRI will be obtained in February. Reflux laryngitis which she manages with eljt-agl-ldorisn omeprazole. I will see her in 6 months. 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 Surgical removal had been discussed with the patient. She understands that this will have to be the solution. We will continue to follow this clinically. A repeat MRI will be obtained in February. Reflux laryngitis which she manages with csdi-tmg-akaibdg omeprazole. I will see her in 6 months. Chief Complaint Follow-up regarding a parapharyngeal space mass. History of Present IllnessI saw this lady for a right carotid sheet mass. Her films have been reviewed with our radiologist and the mass is consistent with a probable schwannoma. Given the location it either arises from the sympathetic chain or from the 10th cranial nerve. The patient has elected to have this followed clinically as opposed to surgical excision. She had a repeat scan in February 2021. I personally reviewed the scan with the patient. It seems to be fairly similar in size. Active Problems Asymmetrical sensorineural hearing loss (389.16) (H90.3) Mass of parapharyngeal space (784.2) (R22.1) Reflux laryngitis (464.00,530.81) (J04.0,K21.9) Tinnitus (388.30) (H93.19) Past Medical History History of bronchitis (V12.69) (Z87.09) History of shortness of breath (V13.89) (Z87.898) Surgical History History of Hysterectomy History of Tonsillectomy Family History Family history of diabetes mellitus (V18.0) (Z83.3) Family history of glaucoma (V19.11) (Z83.511) Family history of hyperlipidemia (V18.19) (Z83.438) Social History Currently working Lives with spouse Never a smoker Social alcohol use Allergies Augmentin SUSR Recorded By: Kerry Gongora; 02/25/2021 11:17:22 AM Other Recorded By: Enedina Fall; 01/30/2014 4:55:13 PM SHRIMP Shrimp Recorded By: Kerry Gongora; 10/30/2014 11:30:52 AM Current Meds Medication NameInstruction Benadryl 25 MG TABS Omeprazole 40 MG Oral Capsule Delayed ReleaseOne (1) capsule by mouth daily Vitals Vital Signs Recorded: 84Chf5089 09:22AM Lsgyfxgnuse28.3 F Height5 ft 7 in Orkyln144 lb BMI Xwehiitpbc79.17 kg/m2 BSA Calculated2.02 Tobacco Useb) No Fall Screeningc) Not medically indicated Physical Exam On examination the oral cavity and oropharynx shows a shift of the soft palate to the left. There is good tongue mobility. Palpation of the neck does show some asymmetry in the upper neck with the right side being more prominent. This may be getting worse. A fiberoptic laryngoscopy was carried out. Under topical Xylocaine and Bladimir-Synephrine the scope was introduced through the nostril. The nasopharynx, base of tongue, hypopharynx, and larynx are visualized. The vocal cords are normally mobile. 'Scores and Scales' Signatures Electronically signed by : Montana Albrecht MD; Sep 09 2021 9:30AM EST (Author) Normal [employer] Tobacco Screening.on Fall risk assessment c) Not medically indicated MG-Ot olaryngol ogy-[facility] Work Phone: Tobacco use status [facility] b) No MG-Otolaryngol ogy-[employer] Work Phone: Tobacco Screening.on Fall risk assessment c) Not medically indicated MG-Ot olaryngol ogy[facility] Work Phone: Tobacco use status CP b) No MG-Otolaryngol ogy[facility] Work Phone: MRI Neck w/wo Contraston MR Neck WO and W contrast IV Interpreted by: PARISH SOSA01/30/20 13:14MRN: [id number] Name: RADHA JO STUDY:MRI NECK WO/W; 01/30/2020 10:19 am INDICATION:f/u on parapharyngeal space mass; please compare to prior imaging. COMPARISON:Multiple prior neck MRIs, most recently 12/27/2018 ORDERING CLINICIAN:MONTANA ALBRECHT TECHNIQUE:MRI of the neck was performed with and without contrast. A total of18 cc MultiHance gadolinium based intravenous contrast wasadministered. Sagittal T1, coronal T1 post chrissy. Axial T1, stir, T2,T1 post chrissy, 3D post chrissy axial images of the neck were obtained aswell as multiplanar reformats in the axial, coronal, and sagittalplane. FINDINGS:A heterogeneously T2 hyperintense avidly enhancing mass in the rightparapharyngeal space measures approximately 3.1 x 4.0 x 7.5 cm,previously 3.0 x 3.6 x 6.9 cm when measured in the same fashion.Unchanged displacement of the adjacent common, internal, and externalcarotid arteries anteriorly. Unchanged lateral displacement and masseffect on the internal jugular vein with associated loss ofenhancement in the proximal internal jugular vein as it exits thejugular foramen. The distal right internal jugular vein is patent. Noextension to the skull base. The nasopharynx, oral cavity, oropharynx, hypopharynx, and larynx areunremarkable. The thyroid gland is within normal limits. The rightsubmandibular gland is displaced anteriorly, the major salivaryglands are otherwise unremarkable. Minimal paranasal sinus mucosalthickening. The mastoid air cells are clear. Nonspecific cervicallymph nodes bilaterally are similar to previous likely reactive, noenlarged lymph nodes in the neck. Mild degenerative changes in thespine without high-grade canal or foraminal narrowing. The visualizedintracranial contents are unremarkable. 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 Electronically signed by: PARISH SOSA 01/30/20 13:14 Normal [facility] Work Phone: Vital Signs Date Time Vital Sign Value Performing Clinician Facility 02-28-2024 10:31-0500 Body height 172.72 cm [facility] 02-28-2024 10:31-0500 Body mass index (BMI) [Ratio] 30.5 kg/m2 [facility] 02-28-2024 10:31-0500 Body temperature 98.7 [degF] [facility] 02-28-2024 10:31-0500 Body weight 91.17 kg [facility] 02-28-2024 10:31-0500 Diastolic blood pressure 76 mm[Hg] [facility] 02-28-2024 10:31-0500 Heart rate 108 /min [facility] 02-28-2024 10:31-0500 SaO2% (BldA) [Mass fraction] 95 % [facility] 02-28-2024 10:31-0500 Systolic blood pressure 124 mm[Hg] [facility] 09-14-2023 08:13-0400 Body height 170.2 cm Montana Albrecht MD Work Phone: [facility] 09-14-2023 08:13-0400 Body mass index (BMI) [Ratio] 30.54 kg/m2 Montana Albrecht MD Work Phone: [facility] 09-14-2023 08:13-0400 Body weight 88.45 kg Montana Albrecht MD Work Phone: [facility] 03-02-2023 10:29-0500 Body height 170.2 cm Montana Albrecht MD Work Phone: [facility] 03-02-2023 10:29-0500 Body mass index (BMI) [Ratio] 30.7 kg/m2 Montana Albrecht MD Work Phone: [facility] 03-02-2023 10:29-0500 Body weight 88.91 kg Montana Albrecht MD Work Phone: [facility] 02-01-2023 15:30-0400 Body height 170.18 cm [employer] Other [place] Other 02-01-2023 15:30-0400 Body mass index (BMI) [Ratio] 31.32 kg/m2 [facility] aLw Other [place] Other 02-01-2023 15:30-0400 Body weight 90.72 kg [employer] [employer] Other [place] Other 02-01-2023 15:30-0400 Diastolic blood pressure 82 mm[Hg] Sobia Smithcheryl Other [place] Other 02-01-2023 15:30-0400 SaO2% (BldA) [Mass fraction] 98 % Sobia Zavalachago Other [place] Other 02-01-2023 15:30-0400 Systolic blood pressure 122 mm[Hg] Sobia Smithcheryl Other [place] Other 08-25-2022 09:24-0400 Body height 170.18 cm Jenna Rodriguez Work Phone: PF-Rbonzekuzqhnzi-Rmu [facility] Work Phone: 08-25-2022 09:24-0400 Body mass index (BMI) [Ratio] 30.7 kg/m2 Jenna Rodriguez Work Phone: NC-Ojspxdugntscex-Awm [facility] Work Phone: 08-25-2022 09:24-0400 Body surface area Derived from formula 2 m2 Jenna Rodriguez Work Phone: FE-Kwhblkxzcgvkcr-Ids [place] Work Phone: 08-25-2022 09:24-0400 Body weight 88.91 kg Jenna Rodriguez Work Phone: GF-Spboomocvibxqa-Czm [place] Work Phone: 02-24-2022 11:13-0500 Body height 170.18 cm Jenna Rodriguez Work Phone: GD-Ockicjzqliyjec-Mnd [place] Work Phone: 02-24-2022 11:13-0500 Body mass index (BMI) [Ratio] 29.45 kg/m2 eJnna Rodriguez Work Phone: EL-Olyvgozfyohdxh-Hmh [place] Work Phone: 02-24-2022 11:13-0500 Body surface area Derived from formula 1.97 m2 Jenna Rodriguez Work Phone: OE-Bhzvtromwdsous-Rbg [place] Work Phone: 02-24-2022 11:13-0500 Body weight 85.28 kg Jenna Rodriguez Work Phone: PW-Yefjbpgmnfgrwb-Sox [place] Work Phone: 09-09-2021 09:22-0400 Body height 170.18 cm Jenna Rodriguez Work Phone: PB-Ucyswlxkxkorlk-Dab [place] Work Phone: 09-09-2021 09:22-0400 Body mass index (BMI) [Ratio] 31.17 kg/m2 Jenna Rodriguez Work Phone: OC-Ynlumnsrheexmv-Xqa [place] Work Phone: 09-09-2021 09:22-0400 Body surface area Derived from formula 2.02 m2 Jenna Rodriguez Work Phone: QH-Fjwyqgldppvygu-Alv [place] Work Phone: 09-09-2021 09:22-0400 Body temperature 97.3 [degF] Jenna Rodriguez Work Phone: HD-Lwrdykltdcttpv-Raz [place] Work Phone: 09-09-2021 09:22-0400 Body weight 90.27 kg Jenna Rodriguez Work Phone: PH-Lqhzkcncloboti-Zug [place] Work Phone: 02-25-2021 11:16-0500 Body height 170.18 cm Montana Albrecht MD Work Phone: RG-Lsizvqdkmabtlo-Flz [place] Work Phone: 02-25-2021 11:16-0500 Body mass index (BMI) [Ratio] 30.7 kg/m2 Montana Albrecht MD Work Phone: MR-Jgdgocfemocwmv-Fgk [place] Work Phone: 02-25-2021 11:16-0500 Body surface area Derived from formula 2 m2 Montana Albrecht MD Work Phone: QX-Qyujoghmakzhde-Euj [place] Work Phone: 02-25-2021 11:16-0500 Body temperature 97 [degF] Montana Albrecht MD Work Phone: MI-Zowjselntvrlqb-Nzk [place] Work Phone: 02-25-2021 11:16-0500 Body weight 88.91 kg Montana Albrecht MD Work Phone: BT-Oephnfgilafvvp-Bzx [place] Work Phone: 01-30-2020 13:50-0400 BMI (Body Mass Index) 30.7 kg/m2 Montana Albrecht OJ-Lxkeotrfrlteyk-Hz s [place] Work Phone: 01-30-2020 13:50-0400 Body Temperature 98 [degF] Montana Albrecht MG-Otolaryngolo gy-Tony [place] Work Phone: 01-30-2020 13:50-0400 Body weight 88.91 kg Montana Albrecht MG-Otolaryngolog y-Tony [place] Work Phone: 01-30-2020 13:50-0400 BSA (Body Surface Area) 2 m2 Montana Albrecht PS-Wkpxnfsuttlrli-Ma s [place] Work Phone: 01-30-2020 13:50-0400 Height 170.18 cm Montana Albrecht MG-Otolaryngolog y-Tony [place] Work Phone: Encounters Encounter Date Encounter Type Care Provider Facility Start: 02-28-2024 Patient encounter status [facility] Start: 02-28-2024 End: 02-28-2024 ambulatory [facility] Work Phone: Start: 02-28-2024 End: 02-28-2024 Patient encounter procedure [facility] Physician [facility] Work Phone: Start: 09-14-2023 End: 09-14-2023 ambulatory [facility] Start: 09-14-2023 End: 09-14-2023 Office outpatient visit 15 minutes Montana Albrecht MD Work Phone: [facility] Comment on above: Parapharyngeal space mass (Primary Dx) Start: 03-02-2023 End: 03-02-2023 ambulatory [facility] Start: 03-02-2023 End: 03-02-2023 Office outpatient visit 15 minutes Montana Albrecht MD Work Phone: [facility] Comment on above: Parapharyngeal space mass (Primary Dx) Start: 03-02-2023 End: 03-02-2023 ambulatory [facility] Start: 02-01-2023 End: 02-01-2023 ambulatory [facility] Other [place] Other Start: 02-01-2023 Encounter for genera l adult medical examination without abnormal findings [facility] Start: 02-01-2023 Initial preventive medicine new patient 40-64yrs [facility] Law [facility] Start: 08-25-[address] Montana Mcqueen lity:[id number] Start: 08-25-2022 Office outpatient vi sit 15 [facility] Work Phone: DX-Wewtvzgxlwhpjs-Nabn [place] Work Phone: Start: 02-24-[address] Montana Mcqueen lity:[id number] Start: 02-24-2022 Office outpatient vi sit 15 minutes Jenna Rodriguez Work Phone: EQ-Brgahakfaqxlas-Xnfu [place] Work Phone: Start: 02-24-[address] Montana Mcqueen lity:[id number] Start: 02-18-2022 End: 02-19-[address] DOCTOR WEBSTER Facility: Start: 09-09-2021 Office outpatient vi sit 15 minutes Jenna Rodriguez Work Phone: IZ-Azusvccwyyqlei-Yyzs [place] Work Phone: Start: 09-09-[address] Montana Mcqueen lity:[id number] Start: 02-25-2021 Office outpatient vi sit 15 minutes Montana Albrecht MD Work Phone: DT-Lffvmipsxzwpjh-Xnzd [place] Work Phone: Start: 01-30-2020 Patient encounter procedure Montana Albrecht RB-Ypbbywwbtcvykg-Ltqo [place] Work Phone: Start: 06-27-2019 Patient encounter procedure Montana Junitosophie RJ-Hmzhbcleftsbup-Zent [place] Work Phone: Start: 12-27-2018 Patient encounter procedure Montana Albrecht WY-Pmtqkdxeoylmpk-Fgex [place] Work Phone: Start: 06-04-2018 Patient encounter procedure Montana Albrecht EZ-Eblfzceinphqzv-Kexf [place] Work Phone: Procedures Date Procedure Procedure Detail Performing Clinician Start: 03-02-2023 MR NECK SOFT TISSUE ONLY W AND WO IV CONTRAST JENNA RODRIGUEZ Start: 03-10-2022 Mammography Montana barrios MD Work Phone: Hysterectomy Montana Albrecht Tonsillectomy Montana Albrecht Plan of Treatment Date Care Activity Detail Author Start: 03-14-2024 End: 03-14-2024 Patient encounter procedure 03/14/2024 10:15 AM EST Office Visit [facility] [address] [address] [phone] [place] [address] [place] [address] [facility] Start: 12-19-2023 Influenza vaccination Influenz a Vaccine (Season Ended) [facility] Start: 09-14-2023 End: 09-14-2023 Patient encounter procedure 09/14/2023 8:30 AM EDT Office Visit [facility] [address] [place] [address] [phone] [place] [address] [place] [address] [facility] Start: 03-10-2023 Screening for malign ant neoplasm of breast Mammogram [facility] Start: 03-02-2023 FUV, Provider: Montana Albrecht, Status: Pen, Time: 10:15 AM FUV, Provider: Montana Albrecht, Status: Pen, Time: 10:15 AM HZ-Logpaydicohapb-Jkmq sanchez Work Phone: Start: 12-18-2022 COVID-19 Vaccine ( season) COVID-19 Vaccine ( season) [facility] Start: 12-18-2022 Influenza vaccination Influenz a Vaccine (#1) [facility] Start: 08-25-2022 FUV, Provider: Montana Albrecht, Status: Pen, Time: 8:30 AM FUV, Provider: Montana Albrecht, Status: Pen, Time: 8:30 AM EG-Gqzwbhbpcxsptb-Umbf sanchez Work Phone: Start: 02-24-2022 FUV, Provider: Montana Albrecht, Status: Pen, Time: 10:15 AM FUV, Provider: Montana Albrecht, Status: Pen, Time: 10:15 AM XD-Lozpzeficmykrj-Ervh [place] Work Phone: Start: 02-20-2022 COVID-19 Vaccine (4 - Pfizer series) COVID-19 Vaccine (4 - Pfizer series) [facility] Start: 09-09-2021 FUV, Provider: Montana Albrecht, Status: Pen, Time: 9:20 AM FUV, Provider: Montana Albrecht, Status: Pen, Time: 9:20 AM BS-Blzltfjbahikbb-Evcw [place] Work Phone: Start: 08-02-2019 Zoster Vaccines (1 of 2) Zoste r Vaccines (1 of 2) [facility] Start: 08-02-1991 DTaP/Tdap/Td Vaccine s (1 - Tdap) DTaP/Tdap/Td Vaccines (1 - Tdap) [facility] Start: 1990 Screening for malign ant neoplasm of cervix [facility] Start: 1988 Hepatitis B Vaccines (1 of 3 - 19+ 3-dose series) Hepatitis B Vaccines (1 of 3 - 19+ 3-dose series) [facility] Start: 08-02-1987 Hepatitis C screening Hepatitis C Sc reening [facility] Start: 1970 MMR Vaccines (1 of 1 - Standard series) MMR Vaccines (1 of 1 - Standard series) [facility] Start: 1969 Hepatitis B Vaccines (1 of 3 - 3-dose series) Hepatitis B Vaccines (1 of 3 - 3-dose series) [facility] Start: 1969 HIV screening HIV Screening [facility] Start: 1969 Lipid panel Lipid Panel [facility] Start: 1969 Screening for malign ant neoplasm of colon [facility] Start: 1969 Yearly Adult Physical Yearly Adult P hysical [facility] Comprehensive metabo lic 2000 panel - Serum or Plasma [facility] MG Breast - bilatera l Screening [facility] US Pelvis [facility] Pelvis transvaginal [facility] Immunizations Immunization Date Immunization Notes Care Provider Fa cility 03-11-2022 influenza virus vaccine, unspecified formulation Montana Albrecht MD Work Phone: [facility] Work Phone: Payers Date Payer Category Payer Private Health Insurance [employer] [id number] 1997-Present [address] [place] [address] [id number] 1969 Unknown [id number] 1969 Unknown [id number] 1969 Unknown [id number] [id number] 1969 Unknown [id number] [id number] 1969 Unknown [id number] [id number] 1969 Unknown [id number] [id number] 1969 Unknown [id number] 1969 Unknown [id number] 1959 Private Health Insurance [id number] Private Health Insurance [id number] Unknown [employer] Social History Date Type Detail Facility Start: 03-02-2023 Never a smoker Never a smoker [facility] Work Phone: Start: 03-02-2023 Sex Assigned At [facility] Other Start: 03-02-2023 End: 02-28-2024 Tobacco smoking status VTIS Never smoked tobacco [facility] Work Phone: Start: 03-02-2023 Tobacco use and exposure Smokeless tobacco non-user [facility] Work Phone: Start: 03-02-2023 End: 09-14-2023 Alcohol intake Current drinker of alcohol (finding) [facility] Work Phone: Start: 1970 Sex Assigned At Not on file [facility] Work Phone: Start: 02-20-2023 End: 09-14-2023 Exposure to SARS-CoV-2 (event) Not sure [facility] Start: 02-28-2024 Sex Female (finding) [facility] Start: 1970 Sex Assigned At Female [facility] NEGATED: Highlighted row - - WL-Pnhzaimgfvlgod-Jb stl [facility] Work Phone: Functional Status Date Assessment Result Facility NEGATED: Highlighted row Functional performance Functional status health issues are not documented Disease JR-Ulpvfykwfupxdr-N [employer] Work Phone: Mental Status Date Assessment Result Facility NEGATED: Highlighted row Cognitive function [Interpretation] Cognitive status health issues are not documented Disease YO-Wiljbtptrngiyq-X [employer] Work Phone: History of Present illness Narrative 03-02-2023 Montana Albrecht MD - 03/02/2023 10:15 AM EST Note Date & Type Note Facility 03-02-2023 History of Present illness Narrative Provider Impressions 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 Surgical removal had been discussed with the patient. She understands that this will have to be the solution. At the same time she is worried about the possible sequelae of the surgery which some of the cranial nerves. We will continue to follow this clinically. I will see her in 6 months. Chief Complaint Follow-up regarding a parapharyngeal space mass. History of Present Illness I saw this lady for a right carotid sheet mass. Her films have been reviewed with our radiologist and the mass is consistent with a probable schwannoma. Given the location it either arises from the sympathetic chain or from the 10th cranial nerve. The patient has elected to have this followed clinically as opposed to surgical excision. She had a repeat scan in February 2023. I personally reviewed the scan with the patient. It seems to be fairly similar in size. And waiting for the report from the radiologist. The patient really does not describe any significant symptoms. Physical Exam On examination the oral cavity and oropharynx shows a shift of the soft palate to the left. There is good tongue mobility. Palpation of the neck does show some asymmetry in the upper neck with the right side being more prominent. This seems to be stable. A fiberoptic laryngoscopy was carried out. Under topical Xylocaine and Bladimir-Synephrine the scope was introduced through the nostril. The nasopharynx, base of tongue, hypopharynx, and larynx are visualized. The vocal cords are normally mobile. documented in this encounter [facility] Work Phone: Evaluation note 02-01-2023 Note Date & Type Note Facility 02-01-2023 Evaluation note Encounter Date Diagnosis Assessment Notes Jan, Wellness examination (ICD-10 - Z00.00) Personalized health advice was given to the beneficiary including a written plan for screenings discussed and provided. Additional counseling was provided here today in regards to general topics regarding health education were discussed in detail. All preventative issues were discussed including remaining a nonsmoker, colorectal screening, the importance of proper sleep for brain health maintenance, maintaining a heart-healthy balanced diet, recognizing and addressing signs of anxiety and depression, maintaining positive relationships with family and friends. Jan, Encounter for screening mammogram for malignant neoplasm of breast (ICD-10 - Z12.31) Patient is due for her routine yearly screening mammogram. Screening mammogram ordered today. Jan, Skin lesion of back (ICD-10 - L98.9) Discussed with pt and advised her to call Dermatology and move appt up from March. Jan, Benign schwannoma (ICD-10 - D36.10) Follows with surgeon at every 6 months to monitor. Has an MRI yearly. Jan, Screening for colon cancer (ICD-10 - Z12.11) Patient due for screening colonoscopy. She would like to wait till the of the year she will call to have referral placed. Jan, Screening for deficiency anemia (ICD-10 - Z13.0) will call lab and diagnostic results and recommendations Jan, Screening for metabolic disorder (ICD-10 - Z13.228) Jan, Screening for lipid disorders (ICD-10 - Z13.220) [facility] Other History of Present illness Narrative 02-17-2022 Note Date & Type Note Facility 02-17-2022 History of Present illness Narrative I saw this lady for a right carotid sheet mass. Her films have been reviewed with our radiologist and the mass is consistent with a probable schwannoma. Given the location it either arises from the sympathetic chain or from the 10th cranial nerve. The patient has elected to have this followed clinically as opposed to surgical excision. She had a repeat scan in February 2022. I personally reviewed the scan with the patient. It seems to be fairly similar in size. The patient really does not describe any significant symptoms. [facility] Work Phone: History of Present illness Narrative 02-17-2022 Note Date & Type Note Facility 02-17-2022 History of Present illness Narrative I saw this lady for a right carotid sheet mass. Her films have been reviewed with our radiologist and the mass is consistent with a probable schwannoma. Given the location it either arises from the sympathetic chain or from the 10th cranial nerve. The patient has elected to have this followed clinically as opposed to surgical excision. She had a repeat scan in February 2022. I personally reviewed the scan with the patient. It seems to be fairly similar in size. The patient really does not describe any significant symptoms. AO-Sctqewrmnsasvg-Mrgnbycz Work Phone: History of Present illness Narrative 02-17-2021 Note Date & Type Note Facility 02-17-2021 History of Present illness Narrative I saw this lady for a right carotid sheet mass. Her films have been reviewed with our radiologist and the mass is consistent with a probable schwannoma. Given the location it either arises from the sympathetic chain or from the 10th cranial nerve. The patient has elected to have this followed clinically as opposed to surgical excision. She had a repeat scan in February 2021. I personally reviewed the scan with the patient. It seems to be fairly similar in size. She also has had some issues with regurgitation of stomach material. Last time I saw her I put her on omeprazole 40 mg. She did well with the medication. [facility] Work Phone: History of Present illness Narrative 02-17-2021 Note Date & Type Note Facility 02-17-2021 History of Present illness Narrative I saw this lady for a right carotid sheet mass. Her films have been reviewed with our radiologist and the mass is consistent with a probable schwannoma. Given the location it either arises from the sympathetic chain or from the 10th cranial nerve. The patient has elected to have this followed clinically as opposed to surgical excision. She had a repeat scan in February 2021. I personally reviewed the scan with the patient. It seems to be fairly similar in size. [facility]Mgevbxlabfilmy-[facility] Work Phone: Evaluation note Note Date & Type Note Facility Evaluation note Diagnosis Parapharyngeal space mass- Primary documented in this encounter [facility] Work Phone: Evaluation note Note Date & Type Note Facility Evaluation note Diagnosis Onset Date Resolution History of ovarian cyst acute February 27, 024 10:24am Left lower quadrant abdominal pain acute February 27 024 10:24am [facility] Work Phone: History general Narrative - Reported Note Date & Type Note Facility History general Narrative - Reported Type Medical History Schwannoma in neck Medical History Benign neuropathy Surgical History Tonsilectomy 1974 Surgical History Hysterectomy 2001 Hospitalization History See Above [facility] Other History of Present illness Narrative Montana Albrecht MD - 09/14/2023 8:30 AM EDT Note Date & Type Note Facility History of Present illness Narrative Provider Impressions 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 Surgical removal had been discussed with the patient. She understands that this will have to be the solution. At the same time she is worried about the possible sequelae of the surgery which some of the cranial nerves. We will continue to follow this clinically. A repeat scan will be obtained in 6 months. The patient is to call us ahead of time to have this arranged. I will see her in 6 months. Chief Complaint Follow-up regarding a parapharyngeal space mass. History of Present Illness I saw this lady for a right carotid sheet mass. Her films have been reviewed with our radiologist and the mass is consistent with a probable schwannoma. Given the location it either arises from the sympathetic chain or from the 10th cranial nerve. The patient has elected to have this followed clinically as opposed to surgical excision. She had a repeat scan in February 2023. I personally reviewed the scan with the patient. The lesion was slightly larger than previously. The patient really does not describe any significant symptoms. Physical Exam On examination the oral cavity and oropharynx shows a shift of the soft palate to the left. There is good tongue mobility. Palpation of the neck does show some asymmetry in the upper neck with the right side being more prominent. This seems to be stable. A fiberoptic laryngoscopy was carried out. Under topical Xylocaine and Bladimir-Synephrine the scope was introduced through the nostril. The nasopharynx, base of tongue, hypopharynx, and larynx are visualized. The vocal cords are normally mobile. documented in this encounter [facility] Work Phone: Family History Mother Name Dates Details Family history of diabetes m ellitus(V18.0, Z83.3) Status:Active Father Name Dates Details Family history of glaucoma(V 19.11, Z83.511) Status:Active Family history of hyperlipid emia(V18.19, Z83.438) Status:Active Mother Name Dates Details Family history of diabetes m ellitus(V18.0, Z83.3) Status:Active Father Name Dates Details Family history of glaucoma(V 19.11, Z83.511) Status:Active Family history of hyperlipid emia(V18.19, Z83.438) Status:Active Unknown Family Member Name Dates Details Family history of glaucoma: Father(V19.11, Z83.511) Status:Active Family history of hyperlipid emia: Father(V18.19, Z83.438) Status:Active Family history of diabetes m ellitus: Mother(V18.0, Z83.3) Status:Active Unknown Family Member Name Dates Details Family history of glaucoma: Father(V19.11, Z83.511) Status:Active Family history of hyperlipid emia: Father(V18.19, Z83.438) Status:Active Family history of diabetes m ellitus: Mother(V18.0, Z83.3) Status:Active Unknown Family Member Name Dates Details Family history of glaucoma: Father(V19.11, Z83.511) Status:Active Family history of hyperlipid emia: Father(V18.19, Z83.438) Status:Active Family history of diabetes m ellitus: Mother(V18.0, Z83.3) Status:Active Unknown Family Member Name Dates Details Family history of glaucoma: Father(V19.11, Z83.511) Status:Active Family history of hyperlipid emia: Father(V18.19, Z83.438) Status:Active Family history of diabetes m ellitus: Mother(V18.0, Z83.3) Status:Active Relationship Condition Age at Onset Recorded Date/T william brother History of malignant neoplasm of skin Unk nown family member Family history of other condition Unknow n mother Heart disease Unknown Family history of other condition Unknown Diabetes mellitus Unknown Chief Complaint 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 Summary Purpose Advance Directives Advance Directive Response Recorded Date/ Time Advance Directives No February 10:23am Chief Complaint and Reason for Visit Chief Complaint Admit Date tender bump in abdomen February 27 10:24am Reason for Visit Admit Date History of ovarian cyst February 27 024 10:24am Left lower quadrant abdominal pain Novem 2023 10:24am Additional Source Comments INFORMATION SOURCE (unrecogn ized section and content) DATE CREATED AUTHOR 02/23/2022 [facility] DATE CREATED AUTHOR AUTHOR'S ORGANIZ ATION 08/26/2022 [facility] DATE CREATED AUTHOR AUTHOR'S ORGANIZ ATION 08/26/2022 [employer] DATE CREATED AUTHOR AUTHOR'S ORGANIZ ATION 09/14/2023 [facility] DATE CREATED AUTHOR AUTHOR'S ORGANIZ ATION 11/05/2023 [facility] REASON FOR VISIT (unrecogniz ed section and content) Reason Comments Follow-up Care Teams (unrecognized sec tion and content) Tool Supervisor Relationship Specialty Start Date End Date Jenna Rodriguez MD [address] [place] [address], 1 [place] [address] PCP - General 11/03/13 Team Status: Active Member Role Status Dates Jenna Rodriguez MD Primary Care Provider Active Team Status: Inactive Member Role Status Dates Jenna Rodriguez MD Primary Care Provider Active Start: February 28, 2024 End: February 28, 2024 Sobia Law APRN INTERNAL COMBUSTION ENGINE SUBASSEMBLER-C Attending Provider Active Start: February End: February 28, 2024 Goals (unrecognized section and content) Goals may be documented in a n alternate section FOR RECORDS PERTAINING TO PATIENTS WHO ARE OR HAVE BEEN ENROLLED IN A CHEMICAL DEPENDENCY/SUBSTANCEABUSE PROGRAM, SOME INFORMATION MAY BE OMITTED. This clinical summary was aggregated from multiple sources. Caution should be exercised in using it in the provision of clinical care. This summary normalizes information from multiple sources, and as a consequence, information in this document may materially change the coding, format and clinical context of patient data. In addition, data may be omitted in some cases. CLINICAL DECISIONS SHOULD BE BASED ON THE PRIMARY CLINICAL RECORDS. [facility] [employer] provides no warranty or guarantee of the accuracy or completeness of information in this document.
[2024-03-04 09:17] LABS: Basophils Percent Auto 0.7 % (0.2-2.0); Eosinophils Absolute Auto 0.1 10^3/uL (0.0-0.7); Eosinophils Percent Auto 2.5 % (0.9-7.0); Hematocrit 43.2 % (36.0-48.0); Hemoglobin 13.9 g/dL (12.0-16.0); Immature Granulocytes Abs Auto 0.01 10^3/uL (0.00-0.03); Immature Granulocytes Pct Auto 0.2 % (0.0-0.5); Lymphocytes Absolute Auto 2.5 10^3/uL (1.2-3.8); Lymphocytes Percent Auto 44.6 % (20.5-60.0); Mean Corpuscular HGB Conc 32.2 g/dL (29.9-35.2); Mean Corpuscular Hemoglobin 27.7 pg (26.7-34.0); Mean Corpuscular Volume 86.1 fL (81.0-99.0); Mean Platelet Volume 8.8 fL (9.5-13.5); Monocytes Absolute Auto 0.5 10^3/uL (0.3-0.8); Monocytes Percent Auto 8.7 % (1.7-12.0); Neutrophils Absolute Auto 2.4 10^3/uL (1.4-6.5); Neutrophils Percent Auto 43.3 % (43.0-75.0); Platelet Count 171 10^3/uL (150-450); Red Blood Count 5.02 10^6/uL (4.20-5.40); Red Cell Distribution Width 12.3 % (11.0-15.0); White Blood Count 5.5 10^3/uL (4.0-11.0)
[2024-03-04 09:38] LABS: Alanine Aminotransferase 33 U/L (14-59); Albumin Globulin Ratio 1.4; Albumin Level 4.2 g/dL (3.4-5.0); Alkaline Phosphatase 47 U/L (46-116); Anion Gap 14.4; Aspartate Amino Transferase 19 U/L (15-37); BUN Creatinine Ratio 15.4; Bilirubin Total 0.5 mg/dL (0.2-1.0); Calcium 9.3 mg/dL (8.5-10.1); Carbon Dioxide 25.6 mmol/L (21.0-32.0); Chloride 108 mmol/L (98-107); Chol HDL Ratio 3.7; Cholesterol 205 mg/dL (<=200); Estimated GFR (African America >60 (>=60 mL/min/1.73m^2); Estimated GFR (Non-African Ame 55 (>=60 mL/min/1.73m^2); Globulin 3.1 g/dL; Glucose 138 mg/dL (74-106); HDL Cholesterol 56 mg/dL (40-60); Sodium 144 mmol/L (136-145); Total Protein 7.3 g/dL (6.4-8.2); Triglycerides 105 mg/dL (<=150)
== END 2024-03-04 08:46 | disposition home or self-care (01) ==
LOC: LAB 03-06 10:19
PROVIDERS: PCP Nurse Practitioner Family; Visit Provider Nurse Practitioner Family
DX: Z00.00 Encounter for general adult medical examination without abnormal findings (principal)
CPT/HCPCS: 36415; 80053; 80061; 85025

== ENCOUNTER 2024-03-07 15:17 | Outpatient (OUT) | payer OTHER, SELFPAY ==
--- NOTE | 2024-03-07 15:19 | MM_ITS ---
Patient Name: NARINDER JO MR#: [id number] : 1970 Exam Date: 03/07/2024 Ordering Doctor: AVTAR GAN [facility] REPORT PROCEDURE: MM TOMOSYNTHESIS SCREENING BI COMPARISON: MG [facility] SCRN W CAD DIG, 07/25/2013. INDICATIONS: Screening Calculator Name NCI Breast Cancer Risk Assessment Tool 5 Year Breast Cancer Risk 0.90% Lifetime Breast Cancer Risk 6.90% Personal Breast Cancer No Personal Ovarian Cancer No Treatments None Family Cancers None LOCATION: [facility] BREAST COMPOSITION: The breasts are heterogeneously dense,which may obscure small masses. FINDINGS: DIAGNOSTIC CATEGORY 1--NEGATIVE. NO CHANGE FROM COMPARISON ASSESSMENT. Scattered benign-appearing calcifications are present. Scattered benign-appearing lymph nodes are present. RIGHT BREAST: No significant suspicious finding. LEFT BREAST: No significant suspicious finding. RECOMMENDATIONS: ROUTINE MAMMOGRAM AND CLINICAL EVALUATION IN 12 MONTHS. PLEASE NOTE: A NORMAL MAMMOGRAM DOES NOT EXCLUDE THE POSSIBILITY OF BREAST CANCER. A CLINICALLY SUSPICIOUS PALPABLE LUMP SHOULD BE BIOPSIED. Dictated by: Portillo Salgado MD on 03/08/2024 at 08:27 Approved by: Portillo Salgado MD on 03/08/2024 at 08:28
--- OUTSIDE RECORDS SUMMARY | 2024-03-07 15:27 | XMS_ITS | CCD ---
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 Boyle Referring Unavailable Sobia Law Unavailable Jenna Rodriguez MD Primary Care Provider MONTANA ALBRECHT Attending Unavailable JENNA RODRIGUEZ Primary Care UnavailMONTANA Severino Attending Unavailable JENNA RODRIGUEZ Primary Care Unavailkaylie e JENNIFER, JENNA ARCOS Primary Care UnavailMONTANA Severino Referring Unavailable Allergies Allergy Classification Reported Allergen(s) Allergy Type Date of Onset Reaction(s) Facility Amoxicillin / Clavulanate (1 source) Amoxicillin / Clavulanate Drug Allergy 3 [facility] Shellfish (1 source) Shellfish Food Allergy 4 [facility] shrimp allergenic extract (1 source) shrimp allergenic extract Drug Allergy 3 [facility] Work Phone: (11 sources) shrimp, unspecified; Translations: [SHRIMP] Allergy to substance (finding) 3 Anaphylaxis [facility] 3 Repository (7 sources) Other Allergy to substance (finding) [facility] y[facility] Work Phone: (6 sources) Amoxicillin / Clavulanate; Translations: [Augmentin SUSR] Drug Allergy 3 Unknown [facility] (1 source) Amoxicillin / Clavulanate Drug Allergy [facility] Repository (1 source) Shrimp product Drug allergy (disorder) [facility] Repository (1 source) Shrimp product Propensity to adverse reactions Unknown [facility] Other (3 sources) Shellfish; Translations: [SHELLFISH DERIVED] Propensity to adverse reactions 4 [facility] (1 source) shrimp allergenic extract Drug Allergy 3 [facility] Work Phone: (2 sources) AMOXICILLIN-POT CLAVULANATE; Translations: [AMOXICILLIN-PO T CLAVULANATE] Propensity to adverse reactions to drug (disorder) 3 [facility] 3 Repository (2 sources) Amoxicillin Drug Allergy 4 [facility] (2 sources) Clavulanate Drug Allergy 4 [facility] Medications Current Medications Medication Drug Class(es) Dates Sig (Normalized) Sig (Original) Multi Complete - (1 source) take 1 tablet by mouth once daily Multi Complete - 1 tablet orally daily Active multivitamin tablet (2 sources) Start: 08-14-2003 multivitamin tablet Take one(1) tablet daily. 08/14/2003 Active Start: 08-14-2003 multivitamin t ablet Take one(1) tablet daily. 0 08/14/2003 Active sulfamethoxazole 800 mg / trimethoprim 160 mg oral tablet (1 source) Dihydrofolate Reductase Inhibitor Antibacterial, Sulfonamide Antimicrobial Start: 03-07-2024 take 1 tablet by mouth twice daily Sulfamethoxazole-Trimethoprim (Bactrim Ds) 800-160 mg tablet Active 1 TAB PO Twice daily 14 March 07, 2024 12:00am Completed/Discontinued Medications Medication Drug Class(es) Dates Sig [...] Date Documented Da te Episodic/Chronic Abdominal pain (4 sources) Left lower quadrant pain; Translations: [Left lower quadrant pain] 02-28-2024 Episodic Mycoses (2 sources) Onychomycosis; Translations: [Tinea unguium] 03-07-2024 Episodic Other and unspecified benign neoplasm (1 [...] [Tinnitus, unspecified] Episodic Other female genital disorders (2 sources) History of gynecological disorder; Translations: [Personal history of other diseases of the female genital tract] 02-28-2024 Episodic Other female genital disorders (2 sources) Personal history of other diseases of the [...] [Personal history of other specified diseases] Episodic Skin and subcutaneous tissue infections (2 sources) Cellulitis of hand; Translations: [Cellulitis of unspecified part of limb] 03-07-2024 Episodic Past or Other Problems Problem Classification [...] Test Name Value Interpretation Reference Range Facility Basophils Auto (Bld) [#/Vol] on 03-04-2024 Basophils (Bld) [#/Vol] Automated basophil count 0.0-0.1 [facility] Basophils/100 WBC Auto (Bld) on 03-04-2024 Basophils/100 WBC (Bld) Automated basophil % 0.2-2.0 [facility] Cholesterol in LDL Calc [Mas s/Vol]on 03-04-2024 Cholesterol in LDL [Mass/Vol] Cholesterol in LDL [Mass/volume] in Serum or Plasma by calculation [facility] Comment on above: <100 mg/dl [id number] 0-129 mg/dl NEAR OR ABOVE [id number] mg/dl BORDERLINE [id number] mg/dl HIGH>190 mg/dl VERY HIGH Cholesterol in VLDL Calc [Ma ss/Vol]on 03-04-2024 Cholesterol in VLDL [Mass/Vol] Cholesterol in VLDL [Mass/volume] in Serum or Plasma by calculation [facility] Eosinophils/100 WBC Auto (Bl d)on 03-04-2024 Eosinophils/100 WBC (Bld) Automated eosinophil % 0.9-7.0 [facility] Erythrocyte distribution wid th Auto (RBC) [Ratio]on 03-04-2024 Erythrocyte distribution width (RBC) [Ratio] Erythrocyte distribution width [Ratio] by Automated count 11.0-15.0 [facility] Estimated glomerular filtrat ion rate (GFR) non- Americanon 03-04-2024 GFR/1.73 sq M.predicted among non-blacks MDRD (S/P/Bld) [Vol rate/Area] Estimated glomerular filtration rate (GFR) non- Low >=60 mL/min/1.73m 2 [facility] Globulin Calc (S) [Mass/Vol] on 03-04-2024 Globulin (S) [Mass/Vol] Serum globulin measurement by calculation (mass/volume) [facility] Hematocrit Auto (Bld) [Volum e fraction]on 03-04-2024 Hematocrit (Bld) [Volume fraction] Hematocrit [Volume Fraction] of Blood by Automated count 36.0-48.0 [facility] Hemoglobin [Mass/volume] in Bloodon 03-04-2024 Hemoglobin (Bld) [Mass/Vol] Hemoglobin [Mass/volume] in Blood 12.0-16.0 [facility] Laboratory - Chemistry and C hemistry - challengeon 03-04-2024 Albumin [Mass/Vol] 4.2 g/dL 3.4-5.0 [facility] ALP [Catalytic activity/Vol] 47 U/L 46-116 [facility] ALT [Catalytic activity/Vol] 33 U/L 14-59 [facility] AST [Catalytic activity/Vol] 19 U/L 15-37 [facility] Bilirubin [Mass/Vol] 0.5 mg/dL 0.2-1.0 [facility] Calcium [Mass/Vol] 9.3 mg/dL 8.5-10.1 [facility] Chloride [Moles/Vol] 108 mmol/L High 98-107 [facility] Cholesterol [Mass/Vol] 205 mg/dL High <=200 [facility] Cholesterol in HDL [Mass/Vol] 56 mg/dL 40-60 [facility] Comment on above: > or =60 mg/dl - LOW CARDIOVASCULAR RISK<40 mg/dl - HIGH CARDIOVASCULAR RISK CO2 [Moles/Vol] 25.6 mmol/L 21.0-32.0 [facility] Creatinine [Mass/Vol] 1.04 mg/dL High 0.55-1.02 [facility] GFR/1.73 sq M.predicted MDRD (S/P/Bld) [Vol rate/Area] mL/min/{1.73_m2} >=60 mL/min/1.73m 2 [facility] Glucose [Mass/Vol] 138 mg/dL High 74-106 [facility] Potassium [Moles/Vol] 4.0 mmol/L 3.5-5.1 [facility] Protein [Mass/Vol] 7.3 g/dL 6.4-8.2 [facility] Sodium [Moles/Vol] 144 mmol/L 136-145 [facility] Triglyceride [Mass/Vol] 105 mg/dL <=150 [facility] Urea nitrogen [Mass/Vol] 16.0 mg/dL 7.0-18.0 [facility] Urea nitrogen/Creatinine [Mass ratio] 15.4 mg/mg [facility] Laboratory - Hematology and Cell countson 03-04-2024 Immature granulocytes/100 WBC (Bld) 0.2 % 0.0-0.5 [facility] Leukocytes [#/volume] correc tricia for nucleated erythrocytes in Blood by Automated counon 03-04-2024 WBC corrected for nucl RBC Auto (Bld) [#/Vol] Leukocytes [#/volume] corrected for nucleated erythrocytes in Blood by Automated coun 4.0-11.0 [facility] Lymphocytes Auto (Bld) [#/Vo l]on 03-04-2024 Lymphocytes (Bld) [#/Vol] Lymphocytes [#/volume] in Blood by Automated count 1.2-3.8 [facility] Lymphocytes/100 WBC Auto (Bl d)on 03-04-2024 Lymphocytes/100 WBC (Bld) Lymphocytes/100 leukocytes in Blood by Automated count 20.5-60.0 [facility] MCH Auto (RBC) [Entitic mass ]on 03-04-2024 MCH (RBC) [Entitic mass] MCH [Entitic mass] by Automated count 26.7-34.0 [facility] MCHC Auto (RBC) [Mass/Vol]on 03-04-2024 MCHC (RBC) [Mass/Vol] MCHC [Mass/volume] by Automated count 29.9-35.2 [facility] MCV Auto (RBC) [Entitic vol] on 03-04-2024 MCV (RBC) [Entitic vol] MCV [Entitic volume] by Automated count 81.0-99.0 [facility] Monocytes Auto (Bld) [#/Vol] on 03-04-2024 Monocytes (Bld) [#/Vol] Automated blood monocyte count 0.3-0.8 [facility] Monocytes/100 WBC Auto (Bld) on 03-04-2024 Monocytes/100 WBC (Bld) Automated monocyte % 1.7-12.0 [facility] Neutrophils Auto (Bld) [#/Vo l]on 03-04-2024 Neutrophils (Bld) [#/Vol] Neutrophils [#/volume] in Blood by Automated count 1.4-6.5 [facility] Neutrophils/100 WBC Auto (Bl d)on 03-04-2024 Neutrophils/100 WBC (Bld) Automated neutrophil % 43.0-75.0 [facility] No Panel Informationon 03-04 Eosinophils # (Auto) 0.1 10 3/uL 0.0-0.7 [facility] Immature Granulocyte # (Auto) 0.01 10 3/uL 0.00-0.03 [facility] Platelet mean volume Auto (B ld) [Entitic vol]on 03-04-2024 Platelet mean volume (Bld) [Entitic vol] Platelet mean volume [Entitic volume] in Blood by Automated count Low 9.5-13.5 [facility] Platelets Auto (Bld) [#/Vol] on 03-04-2024 Platelets (Bld) [#/Vol] Platelets [#/volume] in Blood by Automated count 150-450 [facility] RBC Auto (Bld) [#/Vol]on RBC (Bld) [#/Vol] Erythrocytes [#/volu me] in Blood by Automated count 4.20-5.40 [facility] Serum or plasma albumin/glob ulin mass ratioon 03-04-2024 Albumin/Globulin [Mass ratio] Serum or plasma albumin/globulin mass ratio [facility] Serum or plasma anion gap de terminationon 03-04-2024 Anion gap [Moles/Vol] Serum or plasma anion gap determination [facility] Serum or plasma total choles terol/high density lipoprotein (HDL) cholesterol mass emile 03-04-2024 Cholesterol.total/C holesterol in HDL [Mass ratio] Serum or plasma total cholesterol/high density lipoprotein (HDL) cholesterol mass rat [facility] Comment on above: 3.3 - 4.4 LOW RISK4. 4 - 7.1 AVERAGE RISK7.1 - 11.0 MODERATE RISK>11.0 HIGH RISK MR NECK SOFT TISSUE ONLY W A [...] COMPARISON: MRI 02/25/2021 and 02/24/2022 ACCESSION NUMBER(S): [id number] ORDERING CLINICIAN: MONTANA ALBRECHT TECHNIQUE: Axial and [...] as stated. This study was interpreted at [place], [place]. MACRO: None Signed by: Marbin Rao 03/02/2023 2:51 PM Dictation workstation: [id number] Normal [facility] Comment on above: Order Comment: Jeremias Juarez [...] 25 MG TABS Vitals Vital Signs Recorded: 25Aug2022 09:24AM Height5 ft 7 in Yqirlw343 lb BMI Mmowfhizdr82.7 kg/m2 BSA Calculated2 Tobacco Useb) No Falls [...] Aug 25 2022 9:37AM EST (Author) Normal [employer] Physical Tobacco Screening.on 023 Fall risk assessment a) No falls within the last year [facility]o [facility] Work Phone: Tobacco use status [facility] b) No [facility]-Otolaryngo [email or web address] Work Phone: Established Visit (Otolaryng ology)on 02-24-2022 [...] Recorded: 24Feb2022 11:13AM Height5 ft 7 in Nswjrk245 lb BMI Qgiaubnrbs41.45 kg/m2 BSA Calculated1.97 Tobacco Useb) No PHQ-2 [...] Feb 24 2022 11:29AM EST (Author) Normal [facility] MRI Neck w/wo Contraston MR Neck WO and W contrast IV Normal [facility] Work Phone: Tobacco Screening.on 022 Adult depression screening assessment No [facility]-Otolaryngo [employer] Work Phone: Fall risk assessment a) No falls within the last year [facility]Otolaryngo [employer] Work Phone: Tobacco use status [facility] b) No [facility]Otolaryngo [employer] Work Phone: BUNon 02-18-2022 Urea nitrogen [Mass/Vol] 11.0 mg/dL Normal 7.0-18.0 [facility] Comment on above: Performed By: #### B , CREA #### [facility] [address] [place] [address] Dr. Kayli Banda CREATININEon 02-18-2022 Creatinine [Mass/Vol] 0.82 mg/dL Normal 0.55-1.02 [facility] Comment on above: Performed By: #### B UN, CREA #### [facility] [address] [place] [address] Dr. Kayli Banda EGFR-AF EMIRATI >60 Normal >=[address] [facility] Comment on above: Performed By: #### B UN, CREA #### [facility] [address] [place] [address] Dr. Kayli Banda EGFR-NON AF EMIRATI >60 Normal >=60 [facility] Comment on above: Performed By: #### B UN, CREA #### [facility] [address] [place] [address] Dr. Kayli Banda Established Visit (Otolaryng ology)on [...] February. Reflux laryngitis which she manages with xmnj-chb-uriqaxc omeprazole. I will see her in 6 months. 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 Surgical removal had been discussed with the patient. She understands that this will have to be the solution. We will continue to follow this clinically. A repeat MRI will be obtained in February. Reflux laryngitis which she manages with qybe-baz-mrgrncx omeprazole. I will see her in 6 [...] by mouth daily Vitals Vital Signs Recorded: 09Sep2021 09:22AM Qcytideemrb98.3 F Height5 ft 7 in Whhdbi654 lb BMI Dzrmugbxoi79.17 kg/m2 BSA Calculated2.02 Tobacco Useb) No Fall [...] Sep 09 2021 9:30AM EST (Author) Normal [employer] Physical Tobacco Screening.on 022 Fall risk assessment c) Not medically indicated [facility]-Ot olaryngo [facility] Work Phone: Tobacco use status [facility] b) No [facility]tolaryngo [email or web address] Work Phone: Tobacco Screening.on 021 Fall risk assessment c) Not medically indicated [facility]Ot olaryngo [facility] Work Phone: Tobacco use status [facility] b) No [facility]Otolaryngo [employer] Work Phone: MRI Neck w/wo Contraston MR Neck WO and W contrast IV Interpreted by: PARISH SOSA01/30/20 13:14MRN: [id number] Name: RADHA JO STUDY:MRI NECK WO/W; 01/30/2020 [...] signed by: PARISH SOSA 01/30/20 13:14 Normal [facility] Work Phone: Vital Signs Date Time Vital Sign Value Performing Clinician Facility 03-07-2024 11:03-0500 Body height 172.72 cm [facility] 03-07-2024 11:03-0500 Body mass index (BMI) [Ratio] 30.5 kg/m2 [facility] 03-07-2024 11:03-0500 Body temperature 98.7 [degF] [facility] 03-07-2024 11:03-0500 Body weight 91.17 kg [facility] 03-07-2024 11:03-0500 Diastolic blood pressure 72 mm[Hg] [facility] 03-07-2024 11:03-0500 Heart rate 96 /min [facility] 03-07-2024 11:03-0500 SaO2% (BldA) [Mass fraction] 98 % [facility] 03-07-2024 11:03-0500 Systolic blood pressure 122 mm[Hg] [facility] 02-28-2024 10:31-0500 Body height 172.72 cm [facility] 02-28-2024 10:31-0500 Body mass index (BMI) [Ratio] 30.5 kg/m2 [facility] 02-28-2024 10:31-0500 Body temperature 98.7 [degF] [facility] 02-28-2024 10:31-0500 Body weight 91.17 kg [facility] 02-28-2024 10:31-0500 Diastolic blood pressure 76 mm[Hg] [facility] 02-28-2024 10:31-0500 Heart rate 108 /min [facility] 02-28-2024 10:31-0500 SaO2% (BldA) [Mass fraction] 95 % [facility] 02-28-2024 10:31-0500 Systolic blood pressure 124 mm[Hg] [facility] 09-14-2023 08:13-0400 Body height 170.2 cm Montana Albrecht MD Work Phone: [facility] 09-14-2023 08:13-0400 Body mass index (BMI) [Ratio] 30.54 kg/m2 Montana Albrecht MD Work Phone: [facility] 09-14-2023 08:13-0400 Body weight 88.45 kg Montana Albrecht MD Work Phone: [facility] 03-02-2023 10:29-0500 Body height 170.2 cm Montana Albrecht MD Work Phone: [facility] 03-02-2023 10:29-0500 Body mass index (BMI) [Ratio] 30.7 kg/m2 Montana Albrecht MD Work Phone: [facility] 03-02-2023 10:29-0500 Body weight 88.91 kg Montana Albrecht MD Work Phone: [facility] 02-01-2023 15:30-0400 Body height 170.18 cm [employer] Other [facility] Other 02-01-2023 15:30-0400 Body mass index (BMI) [Ratio] 31.32 kg/m2 [employer] Other [facility] Other 02-01-2023 15:30-0400 Body weight 90.72 kg [employer] Other [facility] Other 02-01-2023 15:30-0400 Diastolic blood pressure 82 mm[Hg] [employer] Other [facility] Other 02-01-2023 15:30-0400 SaO2% (BldA) [Mass fraction] 98 % [employer] Other [facility] Other 02-01-2023 15:30-0400 Systolic blood pressure 122 mm[Hg] [employer] Other [facility] Other 08-25-2022 09:24-0400 Body height 170.18 cm Jenna Rodriguez Work Phone: [facility]Okovrrxsuduidh[facility] Work Phone: 08-25-2022 09:24-0400 Body mass index (BMI) [Ratio] 30.7 kg/m2 Jenna Rodriguez Work Phone: BJ-Oqxqcbqjhrwlaq-Alk [facility] Work Phone: 08-25-2022 09:24-0400 Body surface area Derived from formula 2 m2 Jenna Rodriguez Work Phone: MC-Wpluvqvznrxykd-Wzp [facility] Work Phone: 08-25-2022 09:24-0400 Body weight 88.91 kg Jenna Rodriguez Work Phone: WH-Ssjtevbrkhnrrh-Qgk [facility] Work Phone: 02-24-2022 11:13-0500 Body height 170.18 cm Jenna Rodriguez Work Phone: DE-Qrkjnkpcnjmvwk-Fsc [facility] Work Phone: 02-24-2022 11:13-0500 Body mass index (BMI) [Ratio] 29.45 kg/m2 Jenna Rodriguez Work Phone: ME-Jlrydweorblitt-Bty [facility] Work Phone: 02-24-2022 11:13-0500 Body surface area Derived from formula 1.97 m2 Jenna Rodriguez Work Phone: WN-Tdljxdqbsbmxfj-Jxc [facility] Work Phone: 02-24-2022 11:13-0500 Body weight 85.28 kg Jenna Rodriguez Work Phone: YI-Qdpiujcqzxwsll-Tos [facility] Work Phone: 09-09-2021 09:22-0400 Body height 170.18 cm Jenna Rodriguez Work Phone: BA-Dvjbjuguvzccoe-Nvj [facility] Work Phone: 09-09-2021 09:22-0400 Body mass index (BMI) [Ratio] 31.17 kg/m2 Jenna Rodriguez Work Phone: UX-Likkwuyhatirbd-Fep [facility] Work Phone: 09-09-2021 09:22-0400 Body surface area Derived from formula 2.02 m2 Jenna Rodriguez Work Phone: WZ-Ilozeaujnyqejv-Sxg [facility] Work Phone: 09-09-2021 09:22-0400 Body temperature 97.3 [degF] Jenna Rodriguez Work Phone: JU-Dknvoxuiysdiny-Ois [facility] Work Phone: 09-09-2021 09:22-0400 Body weight 90.27 kg Jenna Rodriguez Work Phone: GG-Meebymnydjuzud-Lnn [facility] Work Phone: 02-25-2021 11:16-0500 Body height 170.18 cm Montana Albrecht MD Work Phone: NZ-Rvogjthdnxyeff-Okg [facility] Work Phone: 02-25-2021 11:16-0500 Body mass index (BMI) [Ratio] 30.7 kg/m2 Montana Albrecht MD Work Phone: OF-Mhcuiyxczyqxib-Ewg [facility] Work Phone: 02-25-2021 11:16-0500 Body surface area Derived from formula 2 m2 Montana Albrecht MD Work Phone: KO-Mohbtpxsvbewha-Hjb [facility] Work Phone: 02-25-2021 11:16-0500 Body temperature 97 [degF] Montana Albrecht MD Work Phone: RG-Kxkpdrrrdhzsuo-Vdu [facility] Work Phone: 02-25-2021 11:16-0500 Body weight 88.91 kg Montana Albrecht MD Work Phone: AF-Eytxylhyoejjov-Zxs [facility] Work Phone: 01-30-2020 13:50-0400 BMI (Body Mass Index) 30.7 kg/m2 Montana Albrecht EO-Lesbqxriegmvmc-Pv s [facility] Work Phone: 01-30-2020 13:50-0400 Body Temperature 98 [degF] Montana Albrecht MG-Otolaryngolo gy-[facility] Work Phone: 01-30-2020 13:50-0400 Body weight 88.91 kg Montana Albrecht MG-Otolaryngolog y-Tony [facility] Work Phone: 01-30-2020 13:50-0400 BSA (Body Surface Area) 2 m2 Montana Albrecht EX-Ojbrafzxvqcyuv-Oc s [facility] Work Phone: 01-30-2020 13:50-0400 Height 170.18 cm Montana Albrecht MG-Otolaryngolog y-Tony [facility] Work Phone: Encounters Encounter Date Encounter Type Care Provider Facility Start: 03-07-2024 End: 03-07-2024 ambulatory [facility] Work Phone: Start: 03-07-2024 End: 03-07-2024 Patient encounter procedure [facility] Physician [facility] Work Phone: Start: 03-06-2024 Non-patient / Non-visit [facility] Physician [facility] Work Phone: Start: 03-04-2024 Non-patient / Non-visit [facility] Physician [facility] Work Phone: Start: 02-28-2024 Patient encounter status [facility] Start: 02-28-2024 End: 02-28-2024 ambulatory [facility] Work Phone: Start: 02-28-2024 End: 02-28-2024 Patient encounter procedure [facility] Physician [facility] Work Phone: Start: 09-14-2023 End: 09-14-2023 ambulatory [facility] Start: 09-14-2023 End: 09-14-2023 Office outpatient visit 15 minutes Montana Albrecht MD Work Phone: [facility] Comment on above: Parapharyngeal space mass (Primary Dx) Start: 03-02-2023 End: 03-02-2023 ambulatory [facility] Start: 03-02-2023 End: 03-02-2023 Office outpatient visit 15 minutes Montana Albrecht MD Work Phone: [facility] Comment on above: Parapharyngeal space mass (Primary Dx) Start: 03-02-2023 End: 03-02-2023 ambulatory [facility] Start: 02-01-2023 End: 02-01-2023 ambulatory [employer] Other [facility] Other Start: 02-01-2023 Encounter for genera l adult medical examination without abnormal findings [employer] [facility] Start: 02-01-2023 Initial preventive medicine new patient 40-64yrs [employer] [facility] Start: 08-25-[address] Montana Mcqueen lity:[phone] Start: 08-25-2022 Office outpatient vi sit 15 minutes Jenna Rodriguez Work Phone: [facility]Scchzpwmxidxht[facility] Work Phone: Start: 02-24-[address] Montana Mcqueen lity:[phone] Start: 02-24-2022 Office outpatient vi sit 15 minutes Jenna Rodriguez Work Phone: ET-Xdiddlgwljiosq-Cgei [place] Work Phone: Start: 02-24-[address] 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 Montana Mcqueen lity:[phone] Start: 02-25-2021 Office outpatient vi sit 15 minutes Montana Albrecht MD Work Phone: XD-Aexzlymddotycm-Xnon [facility] Work Phone: Start: 01-30-2020 Patient encounter procedure Montana Albrecht SE-Dgcrroqgvnaqai-Fhsl [place] Work Phone: Start: 06-27-2019 Patient encounter procedure Montana Albrecht UD-Lwesukjyqjowkm-Xgey [place] Work Phone: Start: 12-27-2018 Patient encounter procedure Montana Albrecht TV-Yzhjmsslfwivpr-Ltea [place] Work Phone: Start: 06-04-2018 Patient encounter procedure Motnana Albrecht AT-Osxxinkezxyahb-Pycq [place] Work Phone: Procedures Date Procedure Procedure Detail Performing Clinician Start: 03-02-2023 MR NECK SOFT TISSUE ONLY W AND WO IV CONTRAST JENNA RODRIGUEZ Start: 03-10-2022 Mammography Montana barrios MD Work Phone: Hysterectomy Montana Albrecht Tonsillectomy Montana Albrecht Plan of Treatment Date Care Activity Detail Author Start: 03-14-2024 End: 03-14-2024 Patient encounter procedure 03/14/2024 10:15 AM EST Office Visit [facility] [address] [place] [id number] [place] [address] [place] [address] [facility] Start: 12-19-2023 Influenza vaccination Influenz a Vaccine (Season Ended) [facility] Start: 09-14-2023 End: 09-14-2023 Patient encounter procedure 09/14/2023 8:30 AM EDT Office Visit [facility] [address] [place] [address] [place] [address] [facility] [place] [address] [facility] Start: 03-10-2023 Screening for malign ant neoplasm of breast Mammogram [facility] Start: 03-02-2023 FUV, Provider: Montana Albrecht, Status: Pen, Time: 10:15 AM FUV, Provider: Montana Albrecht, Status: Pen, Time: 10:15 AM HT-Vrmwqcfkokkolg-Gmsj [place] Work Phone: Start: 12-18-2022 COVID-19 Vaccine ( season) COVID-19 Vaccine () [facility] Start: 12-18-2022 Influenza vaccination Influenz a Vaccine (#1) [facility] Start: 08-25-2022 FUV, Provider: Montana Albrecht, Status: Pen, Time: 8:30 AM FUV, Provider: Montana Albrecht, Status: Pen, Time: 8:30 AM KV-Hojfeexeukgwcd-Gzmu [place] Work Phone: Start: 02-24-2022 FUV, Provider: Montana Albrecht, Status: Pen, Time: 10:15 AM FUV, Provider: Montana Albrecht, Status: Pen, Time: 10:15 AM RI-Ixtbbszfpsggok-Hmfc [place] Work Phone: Start: 02-20-2022 COVID-19 Vaccine (4 - Pfizer series) COVID-19 Vaccine (4 - Pfizer series) [facility] Start: 09-09-2021 FUV, Provider: Montana Albrecht, Status: Pen, Time: 9:20 AM FUV, Provider: Montana Albrecht, Status: Pen, Time: 9:20 AM FB-Jfwhrhwegawktj-Gcmk [place] Work Phone: Start: 08-02-2019 Zoster Vaccines (1 of 2) Zoste r Vaccines (1 of 2) [facility] Start: 08-02-1991 DTaP/Tdap/Td Vaccine s (1 - Tdap) DTaP/Tdap/Td Vaccines (1 - Tdap) [facility] Start: 1990 Screening for malign ant neoplasm of cervix [facility] Start: 1988 Hepatitis B Vaccines (1 of 3 - 19+ 3-dose series) Hepatitis B Vaccines (1 of 3 - 19+ 3-dose series) [facility] Start: 08-02-1987 Hepatitis C screening Hepatitis C Sc [facility] Start: 1970 MMR Vaccines (1 of 1 - Standard series) MMR Vaccines (1 of 1 - Standard series) [facility] Start: 1969 Hepatitis B Vaccines (1 of 3 - 3-dose series) Hepatitis B Vaccines (1 of 3 - 3-dose series) [facility] Start: 1969 HIV screening HIV Screening [facility] Start: 1969 Lipid panel Lipid Panel [facility] Start: 1969 Screening for malign ant neoplasm of colon [facility] Start: 1969 Yearly Adult Physical Yearly Adult P hysical [facility] Comprehensive metabo lic 2000 panel - Serum or Plasma [facility] MG Breast - bilatera l Screening [facility] US Pelvis [facility] US [facility] Immunizations Immunization Date Immunization Notes Care Provider Fa cility 03-11-2022 influenza virus vaccine, unspecified formulation Montana Albrecht MD Work Phone: [facility] Work Phone: Payers Date Payer Category Payer Private Health Insurance [employer] [id number] 1997-Present [address] [place] [address] [id number] 1969 Unknown [id number] 1969 Unknown [id number] [id number] 1969 Unknown [id number] [id number] 1969 Unknown [id number] [id number] 1969 Unknown [id number] [id number] 1969 Unknown [id number] 1969 Unknown [id number] [id number] 1969 Unknown [id number] 1959 Private Health Insurance [id number] Private Health Insurance [id number] Unknown [employer] Social History Date Type Detail Facility Start: 03-02-2023 Never a smoker Never a smoker [facility] Work Phone: Start: 03-02-2023 Sex Assigned At zoidu Other Start: 03-02-2023 End: 02-28-2024 Tobacco smoking status DEIS Never smoked tobacco [facility] Work Phone: Start: 03-02-2023 Tobacco use and exposure Smokeless tobacco non-user [facility] Work Phone: Start: 03-02-2023 End: 09-14-2023 Alcohol intake Current drinker of alcohol (finding) [facility] Work Phone: Start: 1970 Sex Assigned At Not on file [facility] Work Phone: Start: 02-20-2023 End: 09-14-2023 Exposure to SARS-CoV-2 (event) Not sure [facility] Start: 02-28-2024 End: 03-07-2024 Sex Female (finding) [facility] Start: 1970 Sex Assigned At Female [facility] NEGATED: Highlighted row - - EZ-Zyuexwbgusdhhx-Op [facility] Work Phone: Functional Status Date Assessment Result Facility NEGATED: Highlighted row Functional performance Functional status health issues are not documented Disease OG-Dgapsccfanqxsm-Y [place] Work Phone: Mental Status Date Assessment Result Facility NEGATED: Highlighted row Cognitive function [Interpretation] Cognitive status health issues are not documented Disease DF-Ayhhlnuiyufkdn-K [place] Work Phone: Clinical Notes 02-17-2021 to 02-28-2024 Note Date & Type Note Facility 02-28-2024 Evaluation note Diagnosis Onset Date Resolution History of ovarian cyst acute February 27 10:24am Left lower quadrant abdominal pain acute February 27 10:24am Cellulitis of multiple sites of hand and fingers acute March 07 024 10:58am Fungal nail infection acute Feb 10:58am [facility] Work Phone: 1(977) 306-369011-14-2023 History of Present illness Narrative* Montana Albrecht MD - 03/02/2023 10:15 AM EST Provider Impressions Probable schwannoma of the right [...] repeat scan in February 2023. I personally reviewedthe scan with the patient. It seems to [...] was carried out. Under topical Xylocaine and Bladimir- Synephrine the scope wasintroduced through the nostril. The nasopharynx, base of tongue, hypopharynx, and larynx are visualized. The vocal cords are normally mobile. documented in this [facility] Work Phone: 1(339) 364-197410-16-2023 Evaluation note* Encounter Date Diagnosis Assessment Notes Treatment Notes Treatment Clinical Notes Jan, Wellness examination (ICD-10 - Z00.00) [...] Screening for lipid disorders (ICD-10 - Z13.220) [facility] Other 11-01-2022 History of Present illness NarrativeI saw this lady for a right carotid [...] patient really does not describe any significant symptoms.UL-Oqvhvgyqoobdmr-Wownhgxb Work Phone: 1(941) 670-666411-01-2022 History of Present illness DeondreI saw this lady for a right carotid [...] patient really does not describe any significant symptoms.[facility] Work Phone: 1(552) 402-769511-01-2021 History of Present illness DeondreI saw this lady for a right carotid [...] size. She also has had some issues withregurgitation of stomach material. Last time I saw her I put her on omeprazole 40 mg. She did well with the medication. LQ-Dwzhezrznbrcsq-Mwwqzgpd Work Phone: 1(602) 659-370511-01-2021 History of Present illness NarrativeI saw this lady for a right carotid [...] seems to be fairly similar in size. MI-Ojlqqyuvcmbjnz-Hwroyboz Work Phone: Evaluation note* Diagnosis Parapharyngeal space mass- Primary documented in this encounter [facility] Work Phone: Evaluation note* Diagnosis Onset Date Resolution Status Admit Date History of ovarian cyst acute N ovember 2023 10:24am Left lower quadrant abdomina l pain acute February 27, 024 10:24am [facility] Work Phone: History general Narrative - Reported* Type Description Date Medical History Schwannoma in neck Medical History Benign neuropathy Surgical History Tonsilectomy 1974 Surgical History Hysterectomy 2001 Hospitalization History See Above zoidu Other History of Present illness Narrative* Montana Albrecht MD - 09/14/2023 8:30 AM EDT Provider Impressions Probable schwannoma of the right [...] repeat scan in February 2023. I personally reviewedthe scan with the patient. The lesion was [...] was carried out. Under topical Xylocaine and Bladimir- Synephrine the scope wasintroduced through the nostril. The nasopharynx, base of tongue, hypopharynx, and larynx are visualized. The vocal cords are normally mobile. documented in this [facility] Work Phone: Family History Mother Name Dates [...] Date History of ovarian cyst February 27 10:24am Left lower quadrant abdominal pain Novem 2023 10:24am Chief Complaint Admit Date tender bump in abdomen February 27 10:24am Amb Documentation March 06, 2024 10:33am ER f/u, go over results March 07 10:58am Reason for Visit Admit Date History of ovarian cyst February 27 10:24am Left lower quadrant abdominal pain Novem 2023 10:24am Cellulitis of multiple sites of hand and fingers March 07, 2024 10:58am Fungal nail infection March 07 10:58am Additional Source Comments INFORMATION SOURCE (unrecogn ized section and content) DATE CREATED AUTHOR 02/23/2022 [facility] DATE CREATED AUTHOR AUTHOR'S ORGANIZ ATION 08/26/2022 [facility] DATE CREATED AUTHOR AUTHOR'S ORGANIZ ATION 08/26/2022 [employer] DATE CREATED AUTHOR AUTHOR'S ORGANIZ ATION 09/14/2023 [facility] DATE CREATED AUTHOR AUTHOR'S ORGANIZ ATION 11/05/[address] 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 Relationship Specialty Start Date End Date Jenna Rodriguez MD [address] [place] [address], [address] [place] [address] PCP - General 11/03/13 Team Status: Active Member Role Status Dates Jenna Rodriguez MD Primary Care Provider Active Team Status: Inactive Member Role Status Dates Jenna Rodriguez MD Primary Care Provider Active Start: February 28, 2024 End: February 28, 2024 Sobia Law APRN PUBLIC SAFETY DISPATCHER-C Attending Provider Active Start: February End: February 28, 2024 Team Status: Active Member Role Status Dates Sobia Law APRN PUBLIC SAFETY DISPATCHER-Azar Primary Care Provider Active Team Status: Inactive Member Role Status Dates KASI Smyth Primary Care Provider, Attending Provider Active Start: February 28, 2024 End: February 28, 2024 Team Status: Active Member Role Status Dates Jenna Rodriguez MD Primary Care Provider Active Start: March 04, 2024 Sobia Law APRN PUBLIC SAFETY DISPATCHER-C Attending Provider Active Start: February Team Status: Active Member Role Status Dates KASI Smyth Primary Care Provider Active Start: March 062023 Oumou Zuleta CMA Attending Provider Active Start: March 06, 2024 Team Status: Inactive Member Role Status Dates Sobia Law APRN NP-Azar Primary Care Provider, Attending Provider Active Start: March 07, 2024 End: March 07, 2024 Goals (unrecognized section and content) Goals [...] BE BASED ON THE PRIMARY CLINICAL RECORDS. [facility] [employer] [facility]. provides no warranty or guarantee of the accuracy or completeness of information in this document.
== END 2024-03-07 15:18 | disposition home or self-care (01) ==
LOC: MAMMO 15:17
PROVIDERS: PCP Nurse Practitioner Family; Visit Provider Nurse Practitioner Family
DX: Z12.31 Encounter for screening mammogram for malignant neoplasm of breast (principal)
CPT/HCPCS: 77063; 77067

== ENCOUNTER 2025-02-21 06:46 | Outpatient (OUT) | payer OTHER, SELFPAY ==
--- OUTSIDE RECORDS SUMMARY | 2025-02-21 06:50 | XMS_ITS | CCD ---
Author Organization [facility] CliniSyca Care Team Providers Care Pinion Sorter Name Role Phone Montana Albrecht Unavailable Unavailable Montana Albrecht Unavailable Unavailable Unavailable Unavailable Unavailable Unavailable Unavailable Jenna Rodriguez Unavailable MISC, DR FITCH Admitting Unavailable MISC, DR FITCH Attending Unavailable MISC, DR FITCH Consulting Unavailable Dahlia, Dr. Boyle Referring Unavailable Laneestand, Dr. Jenna Arcos Primary Care Mely Albrecht, Dr. Boyle Attending Unavailable Junitoertu, Dr. Boyle Referring Unavailable Hiestand, Dr. Jenna Arcos Primary Care Mely Albrecht, Dr. Boyle Attending Unavailable Junitoertgiselle, Dr. Boyle Referring Unavailable Laneestdina, Dr. Jenna Arcos Primary Care Mely Albrecht, Dr. Boyle Attending Unavailable Lavertu, Dr. Boyle Attending Unavailable Laneestand, Dr. Jenna Arcos Primary Care Mely Albrecht, Dr. Boyle Referring Unavailable Sobia Law Unavailable [phone] Jenna Rodriguez MD Primary Care Provider Jenna Rodriguez MD Primary Care Provider MONTANA ALBRECHT Attending Unavailable JENNA RODRIGUEZ Primary Care UnavailMONTANA Severino Attending Unavailable JENNA RODRIGUEZ Primary Care UnavailMONTANA Severino Referring Unavailable JENNA RODRIGUEZ Primary Care UnavailSobia Sky APRN Primary Care Provider Sobia Law APRN Attending Provider Allergies Allergy ClassificationReported Allergen(s)Allergy TypeDate of OnsetReaction(s) FacilityAmoxicillin / Clavulanate (1 source)Amoxicillin / ClavulanateDrug Ehazzry01-39-4771CdtwaogNvcowcbmjaKindred Hospital DaytonShellfish (1 source)ShellfishFood Ffepren84-90-6704TzseEokoebeoqnBellevue Hospital shrimp allergenic extract (1 source)shrimp allergenic extractDrug Wiulllo29-19-7914PzpnNnqpzbzbvpBellevue Hospital Work Phone: (12 sources)shrimp, unspecified; Translations: [SHRIMP]Allergy to substance (finding)35-69-1889UsojgrkwveyNzozxrumqWestern Reserve Hospital (7 sources)OtherAllergy to substance (finding)EC-Kbqwjftzbfczus-Cjamexse Work Phone: (9 sources)Amoxicillin / Clavulanate; Translations: [Augmentin SUSR]Drug Allergy 42-45-0389UourvrgXpmbwslwabKindred Hospital Dayton (1 source)Amoxicillin / ClavulanateDrug AllergyThe [facility] (1 source)Shrimp productDrug allergy (disorder)[facility] (1 source)Shrimp productPropensity to adverse reactionsUnkCoxHealth iSquare Other (6 sources)Shellfish; Translations: [SHELLFISH DERIVED]Propensity to adverse ulyegvxeb28-10-9491VwnzWtvprafhkmBellevue Hospital (4 sources)shrimp allergenic extractDrug Piqgeyp04-79-9111BewuKameepaytxBellevue Hospital Work Phone: (3 sources)AmoxicillinDrug Yrsfppq35-27-3739MszkxCirghrjzdOhioHealth (3 sources)ClavulanateDrug Seubruu84-91-6725YmzrlYzztdhhvfOhioHealth (2 sources)AMOXICILLIN-POT CLAVULANATE; Translations: [AMOXICILLIN-POT CLAVULANATE]Propensity to adverse reactions to drug (disorder)82-02-7397[facility] Medications Current Medications MedicationDrug Class(es)DatesSig (Normalized)Sig (Original)Multi Complete - (1 source)take 1 tablet by mouth once dailyMulti Complete - 1 tablet orally daily Activemultivitamin tablet (5 sources)Start: 84-59-9021uqfzzwgthiwr tablet Take one(1) tablet daily. 08/14/2003 ActiveStart: 17-98-1130ekwxfsuktxjz tablet Take one(1) tablet daily. 0 08/14/2003 ActiveNo Name (No Known Home Meds) (1 source)Start: 70-29-7097Qu Name (No Known Home Meds) Active December 26, 2024 12:00am Completed/Discontinued Medications MedicationDrug Class(es)DatesSig (Normalized)Sig (Original)diphenhydrAMINE hydrochloride 25 mg oral tablet (7 sources)Histamine-1 Receptor AntagonistBenadryl 25 MG TABS Quantity: 0 Refills: 0 Ordered: 30-Jan-2014 DO ActiveBenadryl 25 MG TABS Refills: 0 DO Activefluocinonide 0.5 mg/ml topical cream (1 source)CorticosteroidStart: 90-32-1605Tnbhpkrbpphu 0.05 % External Cream Quantity: 60 Refills: 0 Ordered: 31-May-2020 DO Start : 31-May-2020 Complete gadoterate meglumine (Dotarem) 0.5 mmol/mL contrast injection 18 mL (1 source)Start: 03-28-2024 End: 39-45-0136pciauf 18 mL intravenously once18 mL, intravenous, Once in imaging, Starting on Wed03/28/24 at 0910, For 1 dose, Administer undiluted as rapid I.V. bolus injectionomeprazole 40 mg delayed release oral capsule (5 sources)Proton Pump InhibitorStart: 50-75-9128erum 1 capsule by mouth once dailyOmeprazole 40 MG Oral Capsule Delayed Release One (1) capsule by mouth daily Quantity: 90 Refills: 1 Ordered: 30-Jan-2020 Montana Albrecht MD Start : 30-Jan-2020 ActivepredniSONE 20 mg oral tablet (1 source)Start: 94-36-7278olnhqyLFMK 20 MG Oral Tablet TAKE THREE TABLETS BY MOUTH FOR 2 DAYS, THEN 2 TABS DAILY FOR 2 DAYS, THEN 1 TAB DAILY FOR 2 DAYS Quantity: 12 Refills: 0 Ordered: 31-Dec-2020 DO Start : 31-Dec-2020 Complete sulfamethoxazole 800 mg / trimethoprim 160 mg oral tablet (2 sources)Dihydrofolate Reductase Inhibitor Antibacterial, Sulfonamide AntimicrobialStart: 03-07-2024 End: 11-81-3319mshx 1 tablet by mouth twice dailySulfamethoxazole-Trimethoprim (Bactrim Ds) 800-160 mg tablet Discontinued 1 TAB PO Twice daily 14 7Nov2023 1:00am December 26, 2024 1:37pm Problems Active Problems Problem ClassificationProblemDateDocumented DateEpisodic/ChronicAbdominal pain (5 sources)Left lower quadrant pain; Translations: [Left lower quadrant pain] 71-89-3111HfsbvsioJqrmjjsi mellitus without complication (2 sources)Type 2 diabetes mellitus; Translations: [Type 2 diabetes mellitus without complications]34-94-1021YvmuvigTtjuedr (3 sources)Onychomycosis; Translations: [Tinea unguium]95-06-3006NwubfkyoFfqtz and unspecified benign neoplasm (1 source)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 system, unspecifiedEpisodicOther ear and sense organ disorders (4 sources)Asymmetrical sensorineural hearing loss; Translations: [Sensorineural hearing loss, asymmetrical]ChronicOther ear and sense organ disorders (3 sources)Asymmetrical sensorineural hearing loss; Translations: [Asymmetrical sensorineural hearing loss]EpisodicOther ear and sense organ disorders (7 sources)Tinnitus; Translations: [Tinnitus, unspecified]EpisodicOther female genital disorders (3 sources)History of gynecological disorder; Translations: [Personal history of other diseases of the female genital tract]98-81-5494AifxubggZoqmy female genital disorders (2 sources)Personal history of other diseases of the female genital tract; Translations: [Personal history of other genital system and obstetric disorders] 19-59-0307NzxrxexeTnvab lower respiratory disease (7 sources)H/O: bronchitis; Translations: [Personal history of other diseases of respiratory system]EpisodicOther screening for suspected conditions (not mental disorders or infectious disease) (7 sources)Encounter for screening mammogram for malignant neoplasm of breast; Translations: [Encounter for screening for malignant neoplasm of colon]Episodic Other skin disorders (1 source)Disorder of the skin and subcutaneous tissue, unspecifiedEpisodicOther upper respiratory infections (7 sources)Laryngitis due to gastroesophageal reflux; Translations: [Acute laryngitis without mention of obstruction]EpisodicResidual codes; unclassified (4 sources)History of clinical finding in subject; Translations: [Personal history of other specified diseases]EpisodicResidual codes; unclassified (2 sources)MMR vaccination status; Translations: [Other specified health status] 39-74-8589YrcrfezbSpnj and subcutaneous tissue infections (3 sources)Cellulitis of hand; Translations: [Cellulitis of unspecified part of limb]10-40-7482Wotmuroq Past or Other Problems Problem ClassificationProblemDateDocumented DateEpisodic/ChronicLymphadenitis (1 source)Localized enlarged lymph nodes; Translations: [Localized enlarged lymph nodes]Onset: 91-35-6466TeovglbaWjuwy skin disorders (20 sources)Localized swelling, mass and lump, neck; Translations: [Mass of parapharyngeal space]Onset: 15-73-5301MfpfhsyoBecchgjcltlc (3 sources)History of clinical finding in subject; Translations: [History of shortness of breath]Unclassified (1 source)Onset: 890741-09-9997XQKZWYD: Highlighted row has not occurred! Residual codes; unclassified (12 sources)DiseaseEpisodic Results Test NameValueInterpretationReference RangeFacilityMR NECK SOFT TISSUE ONLY W AND WO IV CONTRASTon 89-74-9989GJ NECK SOFT TISSUE ONLY W AND WO IV CONTRAST Interpreted By: Patrick Pizarro, and Marsha Painting STUDY: MR NECK SOFT TISSUE ONLY W AND WO IV CONTRAST; 03/28/2024 9:54 am INDICATION: Signs/Symptoms:f/u parapharyngeal mass; please compare to prior imaging. ,R22.1 Localized swelling, mass and lump, neck COMPARISON: MRI of the neck soft tissues obtained March 02, 2023 ACCESSION NUMBER(S): [id number] ORDERING CLINICIAN: MONTANA ALBRECHT TECHNIQUE: Axial T1 and fat saturated T2 weighted images of the soft tissues of the neck were acquired. After administration of 18 ML Dotarem intravenous contrast agent, axial, coronal and sagittal fat saturated T1 weighted images were acquired through the soft tissues of the neck. FINDINGS: Oral Cavity, Pharynx and Larynx: The oral cavity, nasopharynx, oropharynx, hypopharynx and laryngeal structures appear unremarkable. There is a 3.7 x 4.7 x 7.6 cm circumscribed, T2 hyperintense, avidly enhancing mass seen within the right parapharyngeal soft tissues, immediately deep to the sternocleidomastoid, posteromedial to the inferior aspect of the superficial parotid lobe, and posterior to the right submandibular gland. This mass anteriorly displaces the common carotid artery and carotid bulb and effaces the right jugular vein. Mass is unchanged from the comparison exam. Parotid and Submandibular Glands: Bilateral parotid and submandibular glands appear unremarkable. Thyroid Gland: The thyroid gland appears unremarkable. Major Neck Vessels: Bilateral major neck vessels demonstrate expected flow voids. Slow flow is suspected within the right jugular bulb without evidence of filling defect on postcontrast imaging. Lymph nodes: There is no evidence of significant cervical adenopathy. Paranasal Sinuses and Mastoids: Visualized paranasal sinuses are clear. Bilateral mastoid air cells are clear. Visualized intracranial and intraorbital structures are normal. 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 I personally reviewed the images/study and I agree with the findings as stated. This study was interpreted at [place], [place]. 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 I personally reviewed the images/study and I agree with the findings as stated. This study was interpreted at [place], [place]. MACRO: None Signed by: Patrick Pizarro 03/28/2024 1:23 PM Dictation workstation: [id number] MMODALInterpreted By: Patrick Pizarro and Marsha Painting STUDY: MR NECK SOFT TISSUE ONLY W AND WO IV CONTRAST; 03/28/2024 9:54 am INDICATION: Signs/Symptoms:f/u parapharyngeal mass; please compare to prior imaging. ,R22.1 Localized swelling, mass and lump, neck COMPARISON: MRI of the neck soft tissues obtained March 02, 2023 ACCESSION NUMBER(S): [id number] ORDERING CLINICIAN: MONTANA ALBRECHT TECHNIQUE: Axial T1 and fat saturated T2 weighted images of the soft tissues of the neck were acquired. After administration of 18 ML Dotarem intravenous contrast agent, axial, coronal and sagittal fat saturated T1 weighted images were acquired through the soft tissues of the neck. FINDINGS: Oral Cavity, Pharynx and Larynx: The oral cavity, nasopharynx, oropharynx, hypopharynx and laryngeal structures appear unremarkable. There is a 3.7 x 4.7 x 7.6 cm circumscribed, T2 hyperintense, avidly enhancing mass seen within the right parapharyngeal soft tissues, immediately deep to the sternocleidomastoid, posteromedial to the inferior aspect of the superficial parotid lobe, and posterior to the right submandibular gland. This mass anteriorly displaces the common carotid artery and carotid bulb and effaces the right jugular vein. Mass is unchanged from the comparison exam. Parotid and Submandibular Glands: Bilateral parotid and submandibular glands appear unremarkable. Thyroid Gland: The thyroid gland appears unremarkable. Major Neck Vessels: Bilateral major neck vessels demonstrate expected flow voids. Slow flow is suspected within the right jugular bulb without evidence of filling defect on postcontrast imaging. Lymph nodes: There is no evidence of significant cervical adenopathy. Paranasal Sinuses and Mastoids: Visualized paranasal sinuses are clear. Bilateral mastoid air cells are clear. Visualized intracranial and intraorbital structures are normal. [facility] MMODALPatrick Pizarro MD - 03/28/2024 Interpreted By: Patrick Pizarro and Hooper Grayson STUDY: MR NECK SOFT TISSUE ONLY W AND WO IV CONTRAST; 03/28/2024 9:54 am INDICATION: Signs/Symptoms:f/u parapharyngeal mass; please compare to prior imaging. ,R22.1 Localized swelling, mass and lump, neck COMPARISON: MRI of the neck soft tissues obtained March 02, 2023 ACCESSION NUMBER(S): [id number] ORDERING CLINICIAN: MONTANA ALBRECHT TECHNIQUE: Axial T1 and fat saturated T2 weighted images of the soft tissues of the neck were acquired. After administration of 18 ML Dotarem intravenous contrast agent, axial, coronal and sagittal fat saturated T1 weighted images were acquired through the soft tissues of the neck. FINDINGS: Oral Cavity, Pharynx and Larynx: The oral cavity, nasopharynx, oropharynx, hypopharynx and laryngeal structures appear unremarkable. There is a 3.7 x 4.7 x 7.6 cm circumscribed, T2 hyperintense, avidly enhancing mass seen within the right parapharyngeal soft tissues, immediately deep to the sternocleidomastoid, posteromedial to the inferior aspect of the superficial parotid lobe, and posterior to the right submandibular gland. This mass anteriorly displaces the common carotid artery and carotid bulb and effaces the right jugular vein. Mass is unchanged from the comparison exam. Parotid and Submandibular Glands: Bilateral parotid and submandibular glands appear unremarkable. Thyroid Gland: The thyroid gland appears unremarkable. Major Neck Vessels: Bilateral major neck vessels demonstrate expected flow voids. Slow flow is suspected within the right jugular bulb without evidence of filling defect on postcontrast imaging. Lymph nodes: There is no evidence of significant cervical adenopathy. Paranasal Sinuses and Mastoids: Visualized paranasal sinuses are clear. Bilateral mastoid air cells are clear. Visualized intracranial and intraorbital structures are normal. 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 I personally reviewed the images/study and I agree with the findings as stated. This study was interpreted at [place], [place]. MACRO: None Signed by: Patrick Pizarro 03/28/2024 1:23 PM Dictation workstation: [id number] [facility] Work Phone: Radiology Study observation (narrative)[facility] Work Phone: MR Neck WO and W contrast IVOrdered By: Patrick Pizarro on 46-50-5431MjxubtehofMemorial Health System [facility] Work Phone: Basophils Auto (Bld) [#/Vol]on 11-12-8631Jellrfxjv (Bld) [#/Vol]Automated basophil count0.0-0.1FCleveland [facility] Hospital Basophils/100 WBC Auto (Bld)on 21-20-6874Hzpicbwih/100 WBC (Bld)Automated basophil %0.2-2.0Fire[facility] Regional Medical CenterCholesterol in LDL Calc [Mass/Vol]on 45-71-1535Mqajphvrrii in LDL [Mass/Vol]Cholesterol in LDL [Mass/volume] in Serum or Plasma by calculation Comment on above:<100 mg/dl LBZXJQG566-933 mg/dl NEAR OR ABOVE VHWRZIQ999-271 mg/dl BORDERLINE ZVIJ206-271 mg/dl HIGH>190 mg/dl VERY HIGHCholesterol in VLDL Calc [Mass/Vol]on 57-74-8752Ejfkxtyvfgn in VLDL [Mass/Vol]Cholesterol in VLDL [Mass/volume] in Serum or Plasma by calculation Eosinophils/100 WBC Auto (Bld)on 70-97-2913Slgewmxyuxi/100 WBC (Bld)Automated eosinophil %0.9-7.0Erythrocyte distribution width Auto (RBC) [Ratio]on 47-28-9016Apokvosqixe distribution width (RBC) [Ratio]Erythrocyte distribution width [Ratio] by Automated count11.0-15.0 Estimated glomerular filtration rate (GFR) non- Americanon 77-67-6726EIW/1.73 sq M.predicted among non-blacks MDRD (S/P/Bld) [Vol rate/Area]Estimated glomerular filtration rate (GFR) non- AmericanLow>=60 mL/min/1.73m 2FCleveland Clinic Hillcrest HospitalGlobulin Calc (S) [Mass/Vol]on 77-36-4118Noottgso (S) [Mass/Vol]Serum globulin measurement by calculation (mass/volume)Hematocrit Auto (Bld) [Volume fraction]on 31-56-0976Wtnmqnqxgq (Bld) [Volume fraction]Hematocrit [Volume Fraction] of Blood by Automated count36.0-48.0Hemoglobin [Mass/volume] in Bloodon 11-31-8713Nuguvlttsh (Bld) [Mass/Vol] Hemoglobin [Mass/volume] in Blood12.0-16.0 Laboratory - Chemistry and Chemistry - challengeon 76-57-1184Nhhzwnk [Mass/Vol] 4.2 g/dL3.4-5.0ALP [Catalytic activity/Vol]47 U/L39-716ItmtzefnrALT [Catalytic activity/Vol]33 U/L 14-59AST [Catalytic activity/Vol]19 U/L15-37 Bilirubin [Mass/Vol]0.5 mg/dL0.2-1.0Calcium [Mass/Vol]9.3 mg/dL8.5-10.1FCleveland Clinic Hillcrest HospitalChloride [Moles/Vol]108 mmol/PNwxl42-756HskzfdmkcCholesterol [Mass/Vol]205 mg/dLHigh<=200 Cholesterol in HDL [Mass/Vol]56 mg/xS36-43Gzmlubkyc Comment on above:> or =60 mg/dl - LOW CARDIOVASCULAR RISK<40 mg/dl - HIGH CARDIOVASCULAR RISKCO2 [Moles/Vol]25.6 mmol/L21.0-32.0Creatinine [Mass/Vol]1.04 mg/dLHigh0.55-1.02GFR/1.73 sq M.predicted MDRD (S/P/Bld) [Vol rate/Area]mL/min/{1.73_m2}>=60 mL/min/1.73m 2FCleveland Clinic Hillcrest HospitalGlucose [Mass/Vol]138 mg/dLHigh 74-106Potassium [Moles/Vol]4.0 mmol/L3.5-5.1 Protein [Mass/Vol]7.3 g/dL6.4-8.2FElyria Memorial Hospitalodium [Moles/Vol]144 mmol/C071-411XhrifscfpTriglyceride [Mass/Vol]105 mg/dL<=150Urea nitrogen [Mass/Vol]16.0 mg/dL7.0-18.0Urea nitrogen/Creatinine [Mass ratio]15.4 mg/mgLaboratory - Hematology and Cell countson 96-94-9874Fmgpduho granulocytes/100 WBC (Bld)0.2 %0.0-0.5FC[facility] Leukocytes [#/volume] corrected for nucleated erythrocytes in Blood by Automated counon 88-71-0797ZQU corrected for nucl RBC Auto (Bld) [#/Vol]Leukocytes [#/volume] corrected for nucleated erythrocytes in Blood by Automated coun 4.0-11.0Lymphocytes Auto (Bld) [#/Vol]on 38-50-3358Vfxrkqckfkd (Bld) [#/Vol]Lymphocytes [#/volume] in Blood by Automated count1.2-3.8Lymphocytes/100 WBC Auto (Bld)on 82-56-2314Frxxyuhyupl/100 WBC (Bld)Lymphocytes/100 leukocytes in Blood by Automated count20.5-60.0Grant HospitalH Auto (RBC) [Entitic mass]on 41-34-8517ABY (RBC) [Entitic mass]MCH [Entitic mass] by Automated count 26.7-34.0MCHC Auto (RBC) [Mass/Vol]on 10-63-3184UPBG (RBC) [Mass/Vol]MCHC [Mass/volume] by Automated count29.9-35.2 MCV Auto (RBC) [Entitic vol]on 94-69-8335BGT (RBC) [Entitic vol]MCV [Entitic volume] by Automated count81.0-99.0Monocytes Auto (Bld) [#/Vol]on 26-84-0849Extoofrbq (Bld) [#/Vol]Automated blood monocyte count0.3-0.8 Monocytes/100 WBC Auto (Bld)on 45-12-3116Enxunzmqh/100 WBC (Bld)Automated monocyte %1.7-12.0Neutrophils Auto (Bld) [#/Vol]on 33-75-6969Lrrupxqvlvx (Bld) [#/Vol]Neutrophils [#/volume] in Blood by Automated count1.4-6.5FCleveland Clinic Hillcrest HospitalNeutrophils/100 WBC Auto (Bld)on 11-40-8050Avhaoqywrwz/100 WBC (Bld)Automated neutrophil %43.0-75.0 No Panel Informationon 69-11-8761Qqjoftjjrmi # (Auto)0.1 10 3/uL0.0-0.7FCleveland Clinic Hillcrest HospitalImmature Granulocyte # (Auto)0.01 10 3/uL0.00-0.03Platelet mean volume Auto (Bld) [Entitic vol]on 13-42-4708Ayhucjwv mean volume (Bld) [Entitic vol] Platelet mean volume [Entitic volume] in Blood by Automated countLow9.5-13.5 Platelets Auto (Bld) [#/Vol]on 03-04-2024 Platelets (Bld) [#/Vol]Platelets [#/volume] in Blood by Automated -252 RBC Auto (Bld) [#/Vol]on 11-64-2283HEA (Bld) [#/Vol]Erythrocytes [#/volume] in Blood by Automated count4.20-5.40Kindred Hospital Daytonerum or plasma albumin/globulin mass ratioon 03-04-2024 Albumin/Globulin [Mass ratio]Serum or plasma albumin/globulin mass ratio [facility] Daytonerum or plasma anion gap determinationon 77-84-8871Jhcix gap [Moles/Vol]Serum or plasma anion gap determinationKindred Hospital Daytonerum or plasma total cholesterol/high density lipoprotein (HDL) cholesterol mass emile 57-57-4428Pcepvytvujp.total/Cholesterol in HDL [Mass ratio]Serum or plasma total cholesterol/high density lipoprotein (HDL) cholesterol mass ratComment on above:3.3 - 4.4 LOW RISK4.4 - 7.1 AVERAGE RISK7.1 - 11.0 MODERATE RISK>11.0 HIGH RISK Established Visit (Otolaryngology)on 57-92-9605Sdtzwxmdwis Visit (Otolaryngology)Diagnoses/Problems Mass of parapharyngeal space (784.2) (R22.1) Patient [...] Recorded: 25Aug2022 09:24AM Height5 ft 7 in Nrhati039 lb BMI Tsgmtedhyy46.7 kg/m2 BSA Calculated2 Tobacco Useb) No Falls [...] MD; Aug 25 2022 9:37AM EST (Author) NormalUH TouchworksTobacco Screening.on 84-86-2550Mtkg risk assessmenta) No falls within the last yjihYQ-Dileknjzmgpbhr-Pnnxareu Work Phone: Tobacco use status CPHSb) RkVE-Exjhampqrmmjdp-Ijredana Work Phone: Established Visit (Otolaryngology)on 02-24-2022 Established Visit (Otolaryngology)Diagnoses/Problems Mass of parapharyngeal space (784.2) (R22.1) Patient [...] Recorded: 24Feb2022 11:13AM Height5 ft 7 in Ltzqpq397 lb BMI Ekdxmmvwiq92.45 kg/m2 BSA Calculated1.97 Tobacco Useb) No PHQ-2 [...] MD; Feb 24 2022 11:29AM EST (Author) NormalUH TouchworksMRI Neck w/wo Contraston 07-09-2598EI Neck WO and W contrast VVUdjaydEG-Sfhuzmfszsqtwn-Jaaotjbx Work Phone: Tobacco Screening.on 14-54-3472Lbftf depression screening nmnxsvwckkOaZC-Xnyerbxepmlczk-Oraotjgt Work Phone: Fall risk assessmenta) No falls within the last year JZ-Suvbaadfepjcus-Kogjhulm Work Phone: Tobacco use status CPHSb) UkRB-Cvcsmmfwzqakkj-Zmxcmgut Work Phone: bUNon 46-32-6696Jmjv nitrogen [Mass/Vol]11.0 mg/dL Normal7.0-18.0The [facility] HospitalComment on above:Performed By: #### JT ANDREWS #### [facility] [address] [place] [address] Dr. Kayli HarryINEon 25-85-1998Elbmfbygku [Mass/Vol]0.82 mg/dLNormal 0.55-1.02The [facility] HospitalComment on above:Performed By: #### JT ANDREWS #### [facility] [address] [place] [address] Dr. Kayli Zhong-AF UKRAINIAN>60Normal>=60The [facility] HospitalComment on above:Performed By: #### JT ANDREWS #### [facility] [address] [place] [address] Dr. Yilan ChangEGFR-NON AF UKRAINIAN>60Normal>=60The [facility] HospitalComment on above:Performed By: #### JT ANDREWS #### [facility] [id number] 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 Surgical removal had been discussed with the patient. She understands that this will have to be the solution. We will continue to follow this clinically. A repeat MRI will be obtained in February. Reflux laryngitis which she manages with yakg-vxi-grocoof omeprazole. I will see her in 6 months. 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 Surgical removal had been discussed with the patient. She understands that this will have to be the solution. We will continue to follow this clinically. A repeat MRI will be obtained in February. Reflux laryngitis which she manages with vpff-fni-ftzxujp omeprazole. I will see her in 6 [...] daily Vitals Vital Signs Recorded: 09Sep2021 09:22AM Taftdrksktn00.3 F Height5 ft 7 in Ansigj582 lb BMI Mmspyyimgj22.17 kg/m2 BSA Calculated2.02 Tobacco Useb) No Fall [...] MD; Sep 09 2021 9:30AM EST (Author) NormalUH TouchworksTobacco Screening.on 80-74-9784Dtcf risk assessmentc) Not medically bpsisnphrBM-Rhuxcfvvkdrnuz-Pdxsonlq Work Phone: Tobacco use status CPHSb) BhPF-Ljvqywuaxoyath-Zkzprjfa Work Phone: Tobacco Screening.on 17-80-0891Tecm risk assessmentc) Not medically uyhwvqgpkTU-Mkmbljxobtkjwa-Ifdopozs Work Phone: Tobacco use status CPHSb) XqTP-Azehlovwdqamar-Aqfbousw Work Phone: MRI Neck w/wo Contraston 50-21-0913IH Neck WO and W contrast IVInterpreted by: PARISH SOSA01/30/20 13:14MRN: [id number] Name: RADHA JO STUDY:MRI NECK WO/W; 01/30/2020 [...] chrissy axial images of the neck were ob tained aswell as multiplanar reformats in the axial, [...] jugular vein with associated loss ofenhancement in theproximal internal jugular vein as it exits thejugular [...] lymph nodes in the neck. Mild degenerative changesin thespine without high-grade canal or foraminal narrowing. The visualizedintracranial contents are unremarkable. 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 Electronically signed by: PARISH SOSA 01/30/20 13:83EtejeaBB-Ynmrnxnylknqwc-Kpxrxwhb Work Phone: Vital Signs Date TimeVital SignValuePerforming HyhigatrfLfoogjoe31-15-4220 14:53-0400Body tnboet941.72 cmSobia Law APRN Work Phone: [phone])421-1609-09-2025 14:53-0400 Body mass index (BMI) [Ratio]30.1 kg/q4RswudzdzSobia Law APRN Work Phone: [phone]09-09-2025 14:53-0400 Body cgsgacnywvj48.8 [degF]Sobia Law APRN Work Phone: [phone]09-09-2025 14:53-0400 Body utbbcj77.81 kgSobia Law APRN Work Phone: [phone])909-2409-09-2025 14:53-0400 Diastolic blood cqtuzjir64 mm[Hg]Sobia Law APRN Work Phone: 1(875)432-6909-09-2025 14:53-0400 Heart xrci251 /minSobia Law APRN Work Phone: 1(568)202-4709-09-2025 14:53-0400 SaO2% (BldA) [Mass fraction]97 %Sobia Law APRN Work Phone: 1([phone])012-6409-09-2025 14:53-0400 Systolic blood uhxhxqvm104 mm[Hg]Sobia Law APRN Work Phone: [phone]6006-10-2025 08:46-0400 Body ymsbhn989.2 Wilda Albrecht MD Work Phone: [facility]06-10-2025 08:46-0400 Body mass index (BMI) [Ratio]31.17 kg/w5MclmgvMontana Albrecht MD Work Phone: [facility]06-10-2025 08:46-0400 Body adjhyl14.27 kgMontana Albrecht MD Work Phone: [facility]12-10-2024 10:25-0500 Body arocec530.5 Wilda Albrecht MD Work Phone: [facility]12-10-2024 10:25-0500 Body mass index (BMI) [Ratio]29.78 kg/t9UiuijcMontana Albrecht MD Work Phone: [facility]12-10-2024 10:25-0500 Body iayxsz80.54 kgMontana Albrecht MD Work Phone: [facility]11-19-2024 11:03-0500 Body sacifz944.72 cm11-19-2024 11:03-0500Body mass index (BMI) [Ratio]30.5 kg/w7Pijycetyt11-19-2024 11:03-0500Body rrioqerxego15.7 [degF]11-19-2024 11:03-0500Body .17 kg11-19-2024 11:03-0500Diastolic blood xaokooys59 mm[Hg] 03-07-2024 11:03-0500Heart rate96 /min 03-07-2024 11:03-8060ZxL6% (BldA) [Mass fraction]98 %11-19-2024 11:03-0500Systolic blood mm[Hg]11-11-2024 10:31-0500Body biwfsp985.72 cm11-11-2024 10:31-0500Body mass index (BMI) [Ratio]30.5 kg/m2 11-11-2024 10:31-0500Body opbikobvzun96.7 [degF]11-11-2024 10:31-0500Body jqtpaz20.17 kg 11-11-2024 10:31-0500Diastolic blood xvmuikin24 mm[Hg]11-11-2024 10:31-0500Heart hlhj843 /min 11-11-2024 10:31-5524GrD6% (BldA) [Mass fraction]95 %11-11-2024 10:31-0500Systolic blood cinogegg158 mm[Hg]05-28-2024 08:13-0400 Body hkbqux711.2 Wilda Albrecht MD Work Phone: [facility]05-28-2024 08:13-0400 Body mass index (BMI) [Ratio]30.54 kg/h9OkyaiiMontana Albrecht MD Work Phone: [facility]05-28-2024 08:13-0400 Body evqnuk88.45 kgMontana Albrecht MD Work Phone: [facility]11-14-2023 10:29-0500 Body ymvtax486.2 Wilda Albrecht MD Work Phone: [facility]11-14-2023 10:29-0500 Body mass index (BMI) [Ratio]30.7 kg/i6CidabaMontana Albrecht MD Work Phone: [facility]11-14-2023 10:29-0500 Body zacgtj78.91 kgMontana Albrecht MD Work Phone: [facility]10-16-2023 15:30-0400 Body .18 cmSobia Law Other [place] [employer] Other 10-16-2023 15:30-0400Body mass index (BMI) [Ratio] 31.32 kg/x5ZzrmlveqSobia Law Other [employer] Other 10-16-2023 15:30-0400Body pvrweq61.72 kgSobia Smithtammyemirasta Other [employer] Other 10-16-2023 15:30-0400Diastolic blood htgupnbt59 mm[Hg] Sobia nAi Other [employer] Other 10-16-2023 15:30-7252VcA2% (BldA) [Mass fraction]98 % Sobia Smithcheryl Other [employer] Other 10-16-2023 15:30-0400Systolic blood nzkscvai443 mm[Hg] Sobia Smithcheryl Other [employer] Other 05-09-2023 09:24-0400Body .18 cmJenna Thomas [place] Work Phone: [phone]-Wcddscyxbbfsbt-[place] Work Phone: 1(264) 303-228405-09-2023 09:24-0400Body mass index (BMI) [Ratio]30.7 kg/m2Jenna Thomas [place] Work Phone: [phone]-UlvkytlakikvikGametime Work Phone: 1(170) 689-841205-09-2023 09:24-0400Body surface area Derived from formula2 m2Jenna Thomas [place] Work Phone: [phone]-Hxltlojuehyqkt-[employer] Work Phone: 1(605) 303-985305-09-2023 09:24-0400Body qilfuf49.91 kgJenna Thomas [place] Work Phone: 1([phone]-Rovhpwblpvzdnb-[employer] Work Phone: 1(662) 884-209211-08-2022 11:13-0500Body urfmbk321.18 cmJenna Thomas [place] Work Phone: 1([phone]-Rxpqxourommcjb-[employer] Work Phone: 1(835) 154-290611-08-2022 11:13-0500Body mass index (BMI) [Ratio] 29.45 kg/m2Jenna Thomas [place] Work Phone: [phone]-Kikpgxigjcnxdx-[employer] Work Phone: 1(465) 267-502611-08-2022 11:13-0500Body surface area Derived from formula1.97 m2Jenna Thomas [place] Work Phone: 1(974) [phone]-Dtayrzilodsaku-[employer] Work Phone: 1(379) 953-985711-08-2022 11:13-0500Body clygku69.28 kgJenna Thomas [place] Work Phone: 1(430) [phone]-Gtyvjtznyxewtg-[employer] Work Phone: 1(313) 570-157205-24-2022 09:22-0400Body zcavfq968.18 cmJojamal Thomas [place] Work Phone: 1(676) [phone]-Yfarckbbwepidj-[employer] Work Phone: 1(563) 890-858305-24-2022 09:22-0400Body mass index (BMI) [Ratio] 31.17 kg/m2Jenna Thomas [place] Work Phone: 1(607) [phone]-Yaiqfzewgrmzfl-[employer] Work Phone: 1(978) 721-226705-24-2022 09:22-0400Body surface area Derived from formula2.02 m2Jenna Thomas [place] Work Phone: 1(654) [phone]-Ndfmswcwmwpumn-[employer] Work Phone: 1(322) 923-586505-24-2022 09:22-0400Body qdbyqoycbeu16.3 [degF]Kj [place] Work Phone: [phone]-Zrpseeyybqzple-[employer] Work Phone: 1(316) 861-761205-24-2022 09:22-0400Body kbuuce72.27 kgJenna Thomas [place] Work Phone: 1(673) [phone]-Wtkqavulgmfvtl-[employer] Work Phone: 1(298) 540-929111-09-2021 11:16-0500Body .18 Wilda Albrecht MD Work Phone: [phone]-Nlhpqpuzfcwyrp-[place] Work Phone: 1(742) 131-717711-09-2021 11:16-0500Body mass index (BMI) [Ratio]30.7 kg/s0XsjeieMontana Albrecht MD Work Phone: [phone]-Muiuswxxtdxiig-[employer] Work Phone: 1(290) 613-509811-09-2021 11:16-0500Body surface area Derived from formula2 e8TqespcMontana Albrecht MD Work Phone: 1(490) [phone]-Prfgvqbglzuprz-[employer] Work Phone: 1(812) 194-695311-09-2021 11:16-0500Body kuaizyixvgl06 [degF]Montana Albrecht MD Work Phone: [phone]-Vrsvpkrdltyxbv-[place] Work Phone: 1(675) 223-208811-09-2021 11:16-0500Body ltnkag30.91 kgMontana Albrecht MD Work Phone: [phone]-Xjacvnpsxqqemf-[place] Work Phone: 1(819) 871-487310-13-2020 13:50-0400BMI (Body Mass Index)30.7 kg/m2 Montana ArzateIdjhyfmSW-Skygbylchueoqk-Jyjnyjxx Work Phone: 1(617) 266-407810-13-2020 13:50-0400Body Nzfiryvubyp92 [degF][place]ana ArzateCyldhnsTX-Emzhrnnenildfr-Aofrwcte Work Phone: 1(684) 747-269510-13-2020 13:50-0400Body .91 kgMontana BETANCOURTEO-Buljrslkjykmzn-Ztandfjv Work Phone: 1(495) 364-658410-13-2020 13:50-0400BSA (Body Surface Area)2 y7Hzibpl LgsnpjgUX-Fzxfyzoiceivxy-Jbpeslnu Work Phone: 1([phone] 959-802510-13-2020 13:50-07493656Zmvwmj348.18 Wilda Albrecht EI-Ydxzasnyibhgcy-Dbacrfit Work Phone: Encounters Encounter DateEncounter TypeCare ProviderFacilityStart: 12-26-2024 End: 19-79-8050rqztyohpdaGlgmdcbj Rohrbacher APRN Work Phone: [facility] Work Phone: Start: 12-26-2024 End: 40-95-3738Lembmzd encounter procedureSobia Law APRN [facility] Work Phone: Start: 12-26-2024 End: 18-14-8108Pkrndyp encounter statusSobia Law APRN [facility]: 09-26-2024 End: 93-75-2891Fvanrs outpatient visit 15 minutesMontana Albrecht MD Work Phone: [facility] HospitalComment on above: Parapharyngeal space mass (Primary Dx)Start: 09-26-2024 End: 94-12-9985qkkhohdwwuQOHZCUHurley Medical Center AmbulatoryStart: 03-28-2024 End: 86-24-9028dfojxqnggzZLBMVTHurley Medical Center AmbulatoryStart: 03-28-2024 End: 24-98-9349Ruuxpm outpatient visit 15 Laurent Albrecht MD Work Phone: [facility] HospitalComment on above: Parapharyngeal space mass (Primary Dx)Start: 03-28-2024 End: 60-69-0376Ebzxfdwbxc hospital visit by physicianc Bfux5575g [facility] CenterComment on above:Parapharyngeal space massStart: 03-28-2024 End: 61-10-7841ecynviphrtFJOHWSMiddletown Hospitaltart: 03-07-2024 End: 83-20-6954tjjbtdegnhQwhpcoaqeC[facility] Work Phone: Start: 03-07-2024 End: 89-69-6967Lvzyfxy encounter procedureAtrium Healths [facility] Work Phone: Start: 00-83-8164Ugd-patient / Non-[facility] Work Phone: Start: 35-45-1280Nrd-patient / Non-visitFirinova [facility] Work Phone: Start: 81-00-0336Jfiohwp encounter statusKindred Hospital Daytontart: 02-28-2024 End: 79-91-5239bkyrkrnitnWvejwokqiLake [facility] Work Phone: Start: 02-28-2024 End: 98-92-9855Ohzzoqi encounter procedureEcu Health [facility] Work Phone: Start: 09-14-2023 End: 74-74-2388Sagagh outpatient visit 15 minutesMontana Albrecht MD Work Phone: [facility] JerseyComment on above: Parapharyngeal space mass (Primary Dx)Start: 03-02-2023 End: 19-00-0904Hffljb outpatient visit 15 minutesMontana Albrecht MD Work Phone: uh [facility] JerseyComment on above: Parapharyngeal space mass (Primary Dx)Start: 02-01-2023 End: 18-01-7733vcfucrftdxZbgmkikn Sallyacher Other [facility] [employer] Other Start: 56-16-1467Iyhnjrrug for general adult medical examination without abnormal findingsSobia MartinesOhio State East Hospital Start: 35-54-2192Ptoropk preventive medicine new patient 40-64yrsJevon ZavalaacheMemorial Hospital of Sheridan Countytart: 71-82-3753bnfclekvgfZl. [facility] Facility:[id number]: 94-02-5272Vgirkb outpatient visit 15 minutesJenna Wesleyand Work Phone: [phone]-Lhrgkbcpfkogqv-[place] Work Phone: Start: 93-74-4838twuzusmlciQq. [facility] Facility:[id number]: 04-01-2668Fpnnyh outpatient visit 15 minutesJenna Rodriguez Work Phone: [phone]-Dtxkxffuvfzwzh-[place] Work Phone: Start: 37-99-5071thrpaswejcEd. [facility] Facility:[id number]: 02-18-2022 End: 91-47-9729rxuzcplzdxBI DOCTOR MISCFacility:N2Iznfs: 64-83-4058Gvunbk outpatient visit 15 minutesJenna Rodriguez Work Phone: [phone]-Ctnccurnfjuids-[employer] Work Phone: Start: 54-00-2471euinlhujbeKu. [facility] Facility:[id number]: 09-00-4791Sjfrha outpatient visit 15 tilaMontana Albrecht MD Work Phone: [phone]-Csoppjqwowzcsc-[employer] Work Phone: Start: 12-06-1704Qfebduu encounter procedurePierre SwlyharGE-Wfmklzeupqakle-Eadpnqlc Work Phone: Start: 59-03-7383Ebtzfdw encounter procedurePierre FzxwrofIE-Dgernxciyssxvf-Lfhmtyxf Work Phone: Start: 80-03-5445Hmogihl encounter procedurePierre DzwvigyMH-Szhlbglwbocmdu-Qgudfjgl Work Phone: Start: 32-09-3097Plplgeg encounter procedurePierre PleyhcbVZ-Vkznwhuzkmfddp-Knfljqwk Work Phone: Procedures DateProcedureProcedure DetailPerforming ClinicianStart: 27-06-0274Tin orbit face & neck w/o & w/contrast Radha Albrecht MD Work Phone: Start: 72-36-2249JcqzrrbefwiWinior Lavertu MD Work Phone: HysterectomyPierradi WildertuTonsillectomyMontana Albrecht Plan of Treatment DateCare ActivityDetailAuthorStart: 23-64-1055Jhohscgao vaccinationInfluenza Vaccine (Season Ended)[facility] HospitalStdunnellon: 09-26-2024 End: 87-54-7549Zwnuflc encounter jssaquwif69/10/2025 8:45 AM EDT Office Visit [facility] [address] [place] [address] [place] [address] [place] [address] [facility]: 03-14-2024 End: 46-35-4425Txebott encounter hzcuesimg74/26/2024 10:15 AM EST Office Visit [facility] [address] [place] [address] [place] [address] [place] [address] [facility]: 36-50-8509GGRYP-19 Vaccine ( season)COVID-19 Vaccine ( season)[facility]: 84-42-4053Iryuehzgy vaccinationUnKindred Hospital [place]: 09-14-2023 End: 75-45-2044Ckbsvsm encounter ltrhfolwa54/28/2024 8:30 AM EDT Office Visit [facility] [address] [place] [address] [place] [address] [facility] [place] [address] [facility]: 59-94-2185Zxgeeiyoa for malignant neoplasm of breastMammogram [facility]: 29-48-1295EBW, Provider: Montana Albrecht, Status: Pen, Time: 10:15 AMFUV, Provider: Montana Albrecht, Status: Pen, Time: 10:15 YOJN-Kzojnxpcsnxjgq-Hhzogbse Work Phone: Start: 63-70-7508YXFEH-19 Vaccine ( season) COVID-19 Vaccine ( season)[facility]: 32-46-7313Xezlahuij vaccinationInfluenza Vaccine (#1)[facility]: 94-74-0791OSM, Provider: Montana Albrecht, Status: Pen, Time: 8:30 AMFUV, Provider: Montana Albrecht, Status: Pen, Time: 8:30 AM HK-Vzxedyqmgxqcyc-Ejgehero Work Phone: Start: 02-95-2533BFK, Provider: Montana Albrecht, Status: Pen, Time: 10:15 AMFUV, Provider: Montana Albrecht, Status: Pen, Time: 10:15 FDWF-Ktuvlgezapvqmm-Gqrkwkrn Work Phone: Start: 65-61-1996UVYNA-19 Vaccine (4 - Pfizer series) COVID-19 Vaccine (4 - Pfizer series)[facility]: 37-76-6874ISO, Provider: Montana Albrecht, Status: Pen, Time: 9:20 AMFUV, Provider: Montana Albrecht, Status: Pen, Time: 9:20 YIDG-Wjuwdjvwtqhjmn-Smmywutz Work Phone: Start: 69-25-1101Uyvlgxpoozuk vaccinationPneumococcal Vaccine (1 of - PCV)[facility]: 72-52-6134Rfasxg Vaccines (1 of 2)Zoster Vaccines (1 of 2)[facility]: 54-35-9091DFdT/Tdap/Td Vaccines (1 - Tdap)DTaP/Tdap/Td Vaccines (1 - Tdap) [facility]: 94-04-6457Trbcblspd for malignant neoplasm of cervixUnKindred Hospital [place]: 79-04-8650Gaxsfxrmo B Vaccines (1 of 3 - 19+ 3-dose series)Hepatitis B Vaccines (1 of 3 - 19+ 3-dose series)[facility]: 37-91-6137Xwkazlgf mellitus screeningDiabetes ScreeningUnKindred Hospital [place]: 08[birth year]02-1988 Hepatitis C screeningHepatitis C ScreeningUnMemorial Health [facility] Start: 78-78-7226TBA Vaccines (1 of 1 - Standard series)MMR Vaccines (1 of 1 - Standard series)[facility]: 44-18-1309Qjolpjnwn B Vaccines (1 of 3 - 3-dose series)Hepatitis B Vaccines (1 of 3 - 3-dose series) [facility]: 08-45-7592HFD screeningHIV Screening [facility]: 86-02-2989Nkehp panelLipid Panel [facility]: 32-46-0552Wfclfvbsk for malignant neoplasm of colonUnKindred Hospital [place]: 69-08-7930Hhyjqo Adult PhysicalYearly Adult PhysicalUnMemorial Health System Selby General HospitalComprehensive metabolic 1999 panel - Serum or Plasma Comprehensive metabolic 2000 panel - Serum or PlasmaMG Breast - bilateral ScreeningMG Breast - bilateral ScreeningMicroalbumin [Mass/volume] in UrineUS PelvisUS Pelvis transvaginalShorePoint Health Port [facility] Immunizations Immunization DateImmunizationNotesCare FxrnfqtaDehtfbbs16-11-3003fwayajqym virus vaccine, unspecified formulationMontana Albrecht MD Work Phone: [facility] Work Phone: Payers DatePayer CategoryPayerPolicy [id number] Care (Private)[employer] [id number] Health InsuranceAETNA [facility]ATIONAL [facility] [id number] 1997-Present [address] [place] [id number] [id number] 2..1.284624.3.57[id number] 2..1.282186.3.57[id number] 2..1.830476.3.579.[id number] 2..1.362305.3.57[id number] 2..1.642611.3.57[id number] 2..1.235503.3.579.[id number] 2..1.791937.3.579.[id number] 2..840.1.566768.3.579.2.312324-01-5134Qqvcjko Health [id number] Private Health [id number] Social History DateTypeDetailFacilityStart: 03-02-2023 End: 34-15-8684Lamrv a smokerNever a ptxgjuKF-Nmusrmkiopkyba-Henwqfhv Work Phone: Start: 03-02-2023 End: 71-95-9787Hky Assigned At [facility] [employer] Other Start: 03-02-2023 End: 20-20-4819Zvmsrge smoking status NHISNever smoked tobaccoUnMemorial Health System [facility] Work Phone: Start: 23-50-5485Embwlgb use and exposureSmokeless tobacco non-userUnMemorial Health System [facility] Work Phone: Start: 03-02-2023 End: 53-82-2973Tuujixd intakeCurrent drinker of alcohol (finding)[facility] Work Phone: Start: 71-84-0865Obt Assigned At BirthNot on file [facility] Work Phone: Start: 02-20-2023 End: 48-41-7585Fludahzu to SARS-CoV-2 (event)Not sureUnMemorial Health System Selby General HospitalStart: 02-28-2024 End: 42-32-4413GgxBcbdvt (finding)[facility]tontart: 76-70-3282Mut Assigned At [facility] HealthNEGATED: Highlighted row--[facility]-Jpqrofgejusmzb-Iwqvjidb Work Phone: Functional Status CejhGsrxilflywXpzeccXpzfshml30-68-5499Ssugbdd Health Questionnaire 2 item (PHQ- 2) [Reported][facility] HospitalNEGATED: Highlighted rowFunctional performanceFunctional status health issues are not documented Disease PZ-Gjmxwlztbuaxwe-Baoukylb Work Phone: Mental Status DateAssessmentResultFacilityNEGATED: Highlighted rowCognitive function [Interpretation]Cognitive status health issues are not documented Disease RB-Vksfmldyenfcsb-Bpljdrbm Work Phone: Clinical Notes 02-17-2021 to 12-26-2024 Note Date & BefbKmdpXnnajksh05-09-6431 Hospital Discharge instructionsAmbulatory Orders* AMB Cologuard Time Frame: 12/26/24, Location: Determined By Patient [facility] Work Phone: 1(814) 639-281806-10-2025 History of Present illness Narrative* [place] Albrecht MD - 09/26/2024 8:45 AM EDT Provider Impressions 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 Surgical removal had been discussed with the patient. She understands that this will have to be the solution. At the same time she is worried about the possible sequelae of the surgery which some of the cranial nerves. We will continue to follow this clinically. There was no evidence of any growth on the last scan. A repeat scan will be obtained in 6 months. She is to call our office ahead of time to have it scheduled. I will see her in 6 months. [...] excision. She had a repeat scan in March 2024. I personally reviewedthe scan. The lesion seems to be the same size. The radiologist agreed with me. The patient really does not describe any [...] cords are normally mobile. 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 Surgical removal had been discussed with the patient. She understands that this will have to be the solution. At the same time she is worried about the possible sequelae of the surgery which some of the cranial nerves. We will continue to follow this clinically. The scan from today does not seem to show any increase in size of the lesion. I am waiting for the report from the radiologist. I will see her in 6 months. [...] excision. She had a repeat scan in March 2024. I personally reviewedthe scan. The lesion seems to be the same size. The patient really does not describe [...] cords are normally mobile. [facility] Work Phone: 1(152) 968-524711-11-2024 Evaluation note* Diagnosis Onset Date Resolution Status Admit Date History of ovarian cyst acuteNovember 2023 10:24amLeft lower quadrant abdominal painacuteNov2023 10:24amCellulitis of multiple sites of hand and fingersacuteNovember 2023 10:58amFungal nail infectionacuteNov2023 10:58am [facility] Work Phone: 1(575) 721-838511-14-2023 History of Present illness Narrative* Montana Albrecht [...] cords are normally mobile. documented in [facility] encounterSub[facility] Work Phone: 1(353) 968-886810-16-2023 Evaluation note* Encounter Date Diagnosis Assessment Notes Treatment Notes Treatment Clinical Notes Jan, Wellness examination (ICD-10 - Z 00.00) Personalized health advice was given to the beneficiary including a written plan for screenings discussed and provided. Additional counseling was provided here today in regards to general topics regarding health education were discussed in detail. All preventative issues were discussed including remaining a nonsmoker, colorectal screening, the importance of proper sleep for brain health maintenanc e, maintaining a heart-healthy balanced diet, recognizing and addressing signs of anxiety and depression, maintaining positive relationships with family and friends. Jan,Encounter for screening mammogram for malignant neoplasm of breast (ICD-10 - Z12.31)Patient is due for her routine yearly screening mammogram. Screening mammogram ordered today. Jan,Skin lesion of back (ICD-10 - L98.9)Discussed with pt and advised her to call Dermatology and move appt up from March. Jan,enign schwannoma (ICD-10 - D36.10)Follows with surgeon at every 6 months to monitor. Has an MRI yearly. Jan,Screening for colon cancer (ICD-10 - Z12.11)Patient due for screening colonoscopy. She would like to wait till the of the year she will call to have referral placed. Jan,Screening for deficiency anemia (ICD-10 - Z13.0)will call lab and diagnostic results and recommendations Jan,Screening for metabolic disorder (ICD-10 - Z13.228) Jan,Screening for lipid disorders (ICD-10 - Z13.220) [employer] Other 11-01-2022 History of Present illness NarrativeI [...] patient really does not describe any significant symptoms.[facility] Work Phone: 1(276) 481-740211-01-2022 History of Present illness Bert saw this lady for a right carotid [...] patient really does not describe any significant symptoms.[facility] Work Phone: 1(140) 810-415211-01-2021 History of Present illness Bert saw this lady for a right carotid [...] mg. She did well with the medication. [facility] Work Phone: 1(465) 184-714711-01-2021 History of Present illness Bert saw this lady for a right carotid [...] seems to be fairly similar in size. [facility] Work Phone: Evaluation note* Diagnosis Parapharyngeal space mass- Primary documented in this encounter [facility] Work Phone: Evaluation note* Diagnosis Onset Date Resolution Status Admit Date History of ovarian cyst acuteNov2023 10:24amLeft lower quadrant abdominal painacuteNovember 2023 10:24am [facility] Work Phone: Evaluation note* Diagnosis Parapharyngeal space mass- Primary documented in this encounter [facility] Work Phone: Evaluation note* Diagnosis Parapharyngeal space mass documented in this encounter [facility] Work Phone: Evaluation note* Diagnosis Onset Date Resolution Status Admit Date Measles, mumps, rubella (MMR) vaccinatio n status unknown acuteSept2024 2:51pmScreening for colon canceracuteSept2024 2:51pmType 2 diabetes mellitusacuteSept2024 2:51pmWellness examinationacuteSept2024 2:51pm [facility] Work Phone: History general Narrative - Reported* Type Description Date Medical History Schwannoma in neck Medical HistoryBenign neuropathySurgical FgwlxecOfbfeebkydhq1605Wgpnxtub History Gngwdsalosdh0560Dgtuyytgvdpejdz HistorySee Above [employer] Other History of Present illness Narrative* [place] [...] cords are normally mobile. [facility]: Reason for referral (narrative)No reason for referral information availableMer[facility] Work Phone: Reason for visit Narrative* Imaging (Routine) - AuthorizedSpecialtyDiagnoses / ProceduresReferred By ContactReferred To ContactRadiology Diagnoses Parapharyngeal space mass Procedures MR neck soft tissue only [place] [address] [place] [address] Phone: tel: fax: Referral IDStatusReasonStart DateExpiration DateVisits RequestedVisits [id number] Perform Procedure [facility] Work Phone: Family History Mother Name Dates Details Family history of diabetes mehnaz martinez(V18.0, Z83.3) Status:Active Father Name Dates Details Family history of glaucoma(V 19.11, Z83.511) Status:ActiveFamily history of hyperlipidemia(V18.19, Z83.438) Status:Active Mother Name Dates Details Family history of diabetes m ellitus(V18.0, Z83.3) Status:Active Father Name Dates Details Family history of glaucoma(V 19.11, Z83.511) Status:ActiveFamily history of hyperlipidemia(V18.19, Z83.438) Status:Active Unknown Family Member Name Dates Details Family history of glaucoma: Father(V19.11, Z83.511) Status:ActiveFamily history of hyperlipidemia: Father(V18.19, Z83.438) Status:ActiveFamily history of diabetes mellitus: Mother(V18.0, Z83.3) Status:Active Unknown Family Member Name Dates Details Family history of glaucoma: Father(V19.11, Z83.511) Status:ActiveFamily history of hyperlipidemia: Father(V18.19, Z83.438) Status:ActiveFamily history of diabetes mellitus: Mother(V18.0, Z83.3) Status:Active Unknown Family Member Name Dates Details Family history of glaucoma: Father(V19.11, Z83.511) Status:ActiveFamily history of hyperlipidemia: Father(V18.19, Z83.438) Status:ActiveFamily history of diabetes mellitus: Mother(V18.0, Z83.3) Status:Active Unknown Family Member Name Dates Details Family history of glaucoma: Father(V19.11, Z83.511) Status:ActiveFamily history of hyperlipidemia: Father(V18.19, Z83.438) Status:ActiveFamily history of diabetes mellitus: Mother(V18.0, Z83.3) Status:Active Relationship Condition Age at Onset Recorded Date/T william brother History of malignant neoplasm of skin Unk nown family memberFamily history of other conditionUnknownmotherHeart diseaseUnknown Family history of other conditionUnknownDiabetes mellitusUnknown Chief Complaint 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 Summary Purpose Advance Directives Advance Directive Response Recorded Date/ Time Advance Directives No February 10:23am Advance Directive Response Recorded Date/ Time Advance Directives No February 11:23am Chief Complaint and Reason for Visit Chief [...] 10:58am Fungal nail infection March 07 10:58am Chief Complaint Admit Date Wellness December 26, 2024 2:51pm Reason for Visit Admit Date Measles, mumps, rubella (MMR) vaccinatio n status unknown December 26, 2024 2:51pm Screening for colon cancer December 2:51pm Type 2 diabetes mellitus December 26, 2024 2:51pm Wellness examination December 26, 2024 2:51pm Additional Source Comments INFORMATION SOURCE (unrecogn ized section and content) DATE CREATED AUTHOR 02/23/2022 [facility] DATE CREATED AUTHOR AUTHOR'S ORGANIZ ATION 08/26/2022 [facility] DATE CREATED AUTHOR AUTHOR'S ORGANIZ ATION 08/26/2022 [facility] DATE CREATED AUTHOR AUTHOR'S ORGANIZ ATION 09/27/2024 [facility] DATE CREATED AUTHOR AUTHOR'S ORGANIZ ATION 12/14/2024 [facility] REASON FOR VISIT (unrecogniz ed section and content) ReasonCommentsFollow-up Care Teams (unrecognized sec tion and content) Team MemberRelationshipSpecialtyStart DateEnd Date Jenna Rodriguez MD [address] [place] [address], [address] [place] [address] PCP - [facility]11/03/13 Team Status: Active Member Role Status Dates Jenna Rodriguez MD Primary Care Provider Active Team Status: Inactive Member Role Status Dates Jenna Rodriguez MD Primary Care Provider Active Start: February 28, 2024 End: February 28, 2024Sobia Law APRN TRANSFER CONTROLLER-CAttending ProviderActive Start: February 28, 2024 End: February 28, 2024 Team Status: Active Member Role Status Dates Sobia Law APRN TRANSFER CONTROLLER-C Primary Care Provider Active Team Status: Inactive Member Role Status Dates Sobia Law APRN TRANSFER CONTROLLER-C Primary Care Provider, Attending Provider Active Start: February 28, 2024 End: February 28, 2024 Team Status: Active Member Role Status Dates Jenna Rodriguez MD Primary Care Provider Active Start: March 04, 2024 Sobia Law APRN TRANSFER CONTROLLER-CAttending ProviderActiveStart: March 04, 2024 Team Status: Active Member Role Status Dates Sobia Law APRN TRANSFER CONTROLLER-C Primary Care Provider Active Start: March 062023 Cadence Hankins ProviderActiveStart: March 06, 2024 Team Status: Inactive Member Role Status Dates Sobia Law APRN TRANSFER CONTROLLER-C Primary Care Provider, Attending Provider Active Start: March 07, 2024 End: March 07, 2024Team MemberRelationshipSpecialtyStart DateEnd Date Jenna Rodriguez MD [address] [place] [address], [address] [place] [address] PCP - GeneralInternal Vfeifgyj08/9/24Team MemberRelationshipSpecialtyStart Date End Date Jenna Rodriguez MD [address] [place] [address], [address] [place] [address] PCP - GeneralInternal Otijarfv61/9/24Team MemberRelationshipSpecialtyStart Date End Date Jenna Rodriguez MD [address] [place] [address], [address] [place] [address] PCP - GeneralInternal Rmybrbiu33/9/24 Team Status: Inactive Member Role Status Dates Sobia Law APRN TRANSFER CONTROLLER-C Primary Care Provider Active Start: December 262024 End: December 26, 2024Sobia Law APRN TRANSFER CONTROLLER-CAttending ProviderActive Start: December 26, 2024 End: December 26, 2024 Goals (unrecognized section and content) Goals [...] BE BASED ON THE PRIMARY CLINICAL RECORDS. [facility] provides no warranty or guarantee of the accuracy or completeness of information in this document.
--- OUTSIDE RECORDS SUMMARY | 2025-02-21 06:50 | XMS_ITS | Clinical Summary ---
Author Organization [facility] Address [address] [facility] [place] [address] Phone Care Team Providers Care Embroidery Worker Name Role Phone Charlie Mccarty MD Primary Care Provider + Allergies Active AllergyReactionsCriticalityNoted DateCommentsAmoxicillin-Pot Clavulanate Onhsmwt1303/02/2023Shellfish FunrsnwSdznYgp10/29/2812HlazsuOdcbPtr27/14/2023 Medications MedicationSigDispense QuantityRefillsLast FilledStart DateEnd DateStatus multivitamin tablet Take one(1) tablet daily.08/14/2003Active Active Problems No known active problems Encounters DateTypeDepartmentCare OazyKuqxekuqrwq10/26/2025Telephone [facility] [address] [place] [address] Montana Villagomez MD from Last 3 Months Social History Tobacco UseTypesPacks/DayYears UsedDateSmoking Tobacco: NeverSmokeless Tobacco: Never Tobacco Cessation:Counseling Given: Not Answered Alcohol UseStandard Drinks/WeekCommentsYes0 (1 standard drink = 0.6 oz pure alcohol)PHQ-2AnswerDate RecordedPatient Health Questionnaire-2 Hasnl533 CommentsUnknownSex and Gender InformationValueDate RecordedSex Assigned at BirthNot on fileLegal PsfLofjtp89/26/2022 3:22 PM ESTGender IdentityNot on fileSexual OrientationNot on file Last Filed Vital Signs Vital SignReadingTime TakenCommentsBlood Pressure--Pulse--Gmhfmskgbax76.3 ??C (97.3 ??F)09/09/2021 9:22 AM EDTRespiratory Rate--Oxygen Saturation--Inhaled Oxygen Concentration--Oernbk62.3 kg (199 lb)09/26/2024 8:46 AM QAVXeemmc466.2 cm (5' 7 )09/26/2024 8:46 AM EDTBody Mass Index31.17009/26/2024 8:46 AM EDT Plan of Treatment DateTypeDepartmentCare Team (Latest Contact Info)Jvvaoliefem75/09/2025 9:15 AM ESTAppointment [facility] [address] [place] [phone] 03/27/2025 10:15 AM ESTOffice Visit [facility] [address] [place] [phone] [place] [address] [place] [address] Health MaintenanceDue DateLast DoneCommentsCT Ycywcxjiiuvg58/15/1970Colonoscopy 1969Colorectal Cancer Sedwdnasz31/15/1970FIT-DNA (Cologuard)1969FIT 1969HIV Rrtfblzqc96/15/1970Lipid Panel08/01/19690088Nhgacpprkvojl36/15/1970MMR Vaccines (1 of 1 - Standard series)1970Hepatitis C Uacaywkcx46/15/1988 Hepatitis B Vaccines (1 of 3 - 19+ 3-dose series)1988Cervical Cancer Qbybvkhap55/15/1991HPV/Nluojk5708/01/1990Pap Smear1990DTaP/Tdap/Td Vaccines (1 - Tdap)08/02/1991Pneumococcal Vaccine (1 of 1 - PCV)08/02/2019Zoster Vaccines (1 of 2)08/02/20193112Njlvgtuui88/22/202311/, 03/10/2022Yearly Adult Physical /, 02/01/2023Influenza Vaccine (#1)511/OVID- 19 Vaccine (2 - season)/12/2021HIB VaccinesAged OutNo longer eligible based on patient's age to complete this topicHPV VaccinesAged OutNo longer eligible based on patient's age to complete this topicHepatitis A VaccinesAged OutNo longer eligible based on patient's age to complete this topic IPV VaccinesAged OutNo longer eligible based on patient's age to complete this topicMeningococcal VaccineAged OutNo longer eligible based on patient's age to complete this topicRotavirus VaccinesAged OutNo longer eligible based on patient's age to complete this topic Insurance * Guarantor: Popeye Loo TypeRelation to PatientDate of BirthPhone Billing AddressPersonal/YtdcsySfwc38/15/1971 [address] [id number] MemberSubscriberPlan / Payer (Effective 1997-Present)Name:Radha Loo Relation to Subscriber:SelfName:Radha Loo Payer ID:[id number] ([facility]) Type:Not on file Address: [address] [id number] [place] [phone] Care Teams Team MemberRelationshipSpecialtyStart DateEnd Date Charlie Mccarty MD [address] [place] [address], [address] [place] [address] PCP - GeneralInternal Foumorol31/9/24
--- OUTSIDE RECORDS SUMMARY | 2025-02-21 06:50 | XMS_ITS | Clinical Summary ---
Author Organization [facility] Address [address] [facility] [place] [address] Care Team Providers Care Auditor Name Role Phone Unavailable Primary Care Provider Unavailabl e Social History Tobacco UseTypesPacks/DayYears UsedDateSmoking Tobacco: Never Assessed CommentsUnknownSex and Gender InformationValueDate RecordedSex Assigned at Not on fileLegal WgzHlwfvi70/15/2023 6:40 PM EDTGender IdentityNot on fileSexual OrientationNot on file Last Filed Vital Signs Vital SignReadingTime TakenCommentsBlood Ueyciywj464/7003/10/2022 12:00 PM EST Pulse--Temperature--Respiratory Rate--Oxygen Saturation--Inhaled Oxygen Concentration--Zdqety28.2 kg (190 lb)03/10/2022 12:00 PM KZIBhonah110.5 cm (5' 7.5 )03/10/2022 12:00 PM ESTBody Mass Index29.32105/10/2021 12:00 PM EST Plan of Treatment Not on file Insurance [facility] Address: [facility] [id number] [place] [phone]
--- OUTSIDE RECORDS SUMMARY | 2025-02-21 06:50 | XMS_ITS | Clinical Summary ---
Author Organization [facility] Address [id number] [place] [address] Care Team Providers Care Flap Lining Binder Name Role Phone Charlie Mccarty MD Primary Care Provider [phone] Allergies Active AllergyReactionsCriticalityNoted DateCommentsAmoxicillin-Pot Clavulanate Sbcngzmy29/02/2020 Medications No known medications Active Problems No known active problems Immunizations ImmunizationAdministration DatesNext DueCOVID-19, mRNA, LNP-S, PF, 100mcg/0.5mL Dose07/29/2020,07/07/2020 Family History Medical HistoryRelationNameCommentsDiabetesMotherRelationNameStatusComments MotherAlive Social History Tobacco UseTypesPacks/DayYears UsedDateSmoking Tobacco: NeverSmokeless Tobacco: Never Tobacco Cessation:Counseling Given: No Alcohol UseStandard Drinks/WeekCommentsYes0 (1 standard drink = 0.6 oz pure alcohol)PHQ-2AnswerDate RecordedTotal Xdpwd8361ChildcareAnswerDate KowzwzuiXkabbutcjOtvbovg67/12/2019EmploymentAnswerDate RecordedEmploymentUnknown 09/28/2018Purpose - LifeAnswerDate RecordedPurpose and direction in lifeUnknown 1CommentsUnknownSex and Gender InformationValueDate RecordedSex Assigned at BirthNot on fileLegal CujYabihk26/06/2015 11:58 AM EDTGender IdentityNot on fileSexual OrientationNot on file Last Filed Vital Signs Vital SignReadingTime TakenCommentsBlood Sbzedebs389/9307 2:09 PM EDT Ekixu66284/02/2021 2:09 PM FFUTvjcjkemfjq15.8 ??C (98.2 ??F)10/18/2020 2:09 PM EDTRespiratory Dknj250305/21/2019 7:16 PM ESTOxygen Qawhgivmkx68%05/21/2019 7:16 PM ESTInhaled Oxygen Concentration--Ctenob08.5 kg (195 lb)10/18/2020 2:09 PM EDT Zlgaad511.3 cm (5' 6.25 )10/18/2020 2:09 PM EDTBody Mass Index31.2407 2:09 PM EDT Plan of Treatment Health MaintenanceDue DateLast DoneCommentsDepression Rteoyxqmn09/15/1982Tobacco Cmpdiszjo48/15/1982Adult BMI Mrmynqygm49/15/1988DTaP,Tdap and Td Vaccines (1 - Tdap)1988Pap Smear08/01/19909330Cqawzggkwca98/28/Zoster (Shingles) Vaccine (1 of 2)08/02/20197248Malhajubn95/22/640607/, 03/10/2022 COVID-19 Vaccine ( - season)504/03/2021, 07/07/2020Influenza Jyztfrz0512/18/2024 Medical Devices Not on file Procedures Procedure NamePriorityDate/TimeAssociated DiagnosisComments COLONOSCOPYRoutine 11/13/2013from Last 3 Months or Most Recently Relevant to Health Maintenance Results * COLONOSCOPY (11/13/2013)Specimen (Source)Anatomical Location / Laterality Collection Method / VolumeCollection TimeReceived Time11/13/2013 Narrative Authorizing ProviderResult TypeResult StatusScanning Provider ExternalHEALTH MAINTENANCEFinal Result from Last 3 Months or Most Recently Relevant to Health Maintenance Insurance Care Teams Team MemberRelationshipSpecialtyStart DateEnd Date Charlie Mccarty MD [address] [place] [address], [address] [place] [address] PCP - GeneralPediatric05/21/19
[2025-02-21 07:21] LABS: Hematocrit 44.5 % (36.0-48.0); Hemoglobin 14.3 g/dL (12.0-16.0); Immature Granulocytes Abs Auto 0.01 10^3/uL (0.00-0.03); Immature Granulocytes Pct Auto 0.2 % (0.0-0.5); Lymphocytes Absolute Auto 2.5 10^3/uL (1.2-3.8); Mean Corpuscular HGB Conc 32.1 g/dL (29.9-35.2); Mean Corpuscular Hemoglobin 27.7 pg (26.7-34.0); Mean Corpuscular Volume 86.1 fL (81.0-99.0); Platelet Count 172 10^3/uL (150-450); Red Blood Count 5.17 10^6/uL (4.20-5.40); White Blood Count 5.5 10^3/uL (4.0-11.0)
[2025-02-21 08:28] LABS: Alanine Aminotransferase 34 U/L (14-59); Albumin Globulin Ratio 1.3; Albumin Level 4.1 g/dL (3.4-5.0); Alkaline Phosphatase 49 U/L (46-116); Anion Gap 13.4; Aspartate Amino Transferase 14 U/L (15-37); Blood Urea Nitrogen 12.0 mg/dL (7.0-18.0); Calcium 9.1 mg/dL (8.5-10.1); Carbon Dioxide 27.6 mmol/L (21.0-32.0); Chloride 105 mmol/L (98-107); Cholesterol 207 mg/dL (<=200); Estimated GFR (African America >60 (>=60 mL/min/1.73m^2); Estimated GFR (Non-African Ame >60 (>=60 mL/min/1.73m^2); Globulin 3.2 g/dL; Glucose 139 mg/dL (74-106); HDL Cholesterol 49 mg/dL (40-60); Potassium 4.0 mmol/L (3.5-5.1); Sodium 142 mmol/L (136-145); Total Protein 7.3 g/dL (6.4-8.2); Triglycerides 132 mg/dL (<=150); VLDL CHOLESTEROL 26.4 mg/dL
[2025-02-22 08:09] LABS: Measles Antibodies, IgG 164.0 AU/mL (Immune >16.4); Mumps Abs, IgG <9.0 AU/mL (Immune >10.9); Rubella Antibodies, IgG 8.30 index (Immune >0.99)
== END 2025-02-21 06:47 | disposition home or self-care (01) ==
LOC: LAB 06:47
PROVIDERS: PCP Nurse Practitioner Family; Visit Provider Nurse Practitioner Family
DX: E11.9 Type 2 diabetes mellitus without complications (principal); Z78.9 Other specified health status
CPT/HCPCS: 36415; 80053; 80061; 82043; 85025; 86735; 86762; 86765